=== PATIENT | female | born 1950 | race Caucasian/White ===

== ENCOUNTER 2016-06-01 21:39 | Inpatient (IN) | payer MEDICARE ==
[2016-06-01] MEDS ORDERED: SODIUM CHLORIDE 0.9% 1,000 ML IV STA (22:21)
[2016-06-01] MEDS ORDERED: SODIUM CHLORIDE 0.9% 500 ML IV STA (22:21)
[2016-06-01] MEDS ORDERED: PANTOPRAZOLE 40 MG/10 ML VIAL IVP STA (22:21)
--- NOTE | 2016-06-01 22:27 | ED ---
General Adult HPI - General Source: patient, family, RN notes reviewed, old records reviewed Mode of arrival: ambulatory Limitations: no limitations <Lei Woodall - Last Filed: 06/02/16 01:17> <Yamil Vargas - Last Filed: 06/02/16 03:06> - General Chief complaint: Abdominal Pain Stated complaint: Abd Pain Time Seen by Provider: 06/01/16 22:01 - History of Present Illness Initial comments: Chief complaint and history of present illness 14-year-old female with complaint of discomfort from the epigastric region to the right upper quadrant area. This started approximately 23 hours ago. Slightly decreased appetite, no nausea no vomiting. She has not had difficulty having bowel movements or urinating. (Lei Woodall) - Related Data Home Medications Medication Instructions Recorded Confirmed Allopurinol [Zyloprim] 100 mg PO BID 12/23/13 02/04/16 Famotidine [Pepcid] 10 mg PO DAILY 12/23/13 02/04/16 Furosemide [Lasix] 40 mg PO BID 12/23/13 02/04/16 Metoprolol Tartrate [Lopressor] 100 mg PO QID 12/23/13 02/04/16 amLODIPine [Norvasc] 2.5 mg PO HS 12/23/13 02/04/16 hydrALAZINE HCL [Apresoline] 25 mg PO BID 12/23/13 02/04/16 Anagrelide [Agrylin] 1 tab PO DAILY 03/24/14 02/04/16 Cholecalciferol [Vitamin D3] 2,000 unit PO DAILY@1200 03/24/14 02/04/16 Previous Rx's Medication Instructions Recorded Amoxicillin/Potassium Clav 1 tab PO Q12HR #20 tab 06/29/15 [Augmentin 875-125 Tablet] Cephalexin [Keflex] 500 mg PO Q12HR 7 Days 02/04/16 Allergies Allergy/AdvReac Type Severity Reaction Status Date / Time No Known Allergies Allergy Verified 06/01/16 21:46 Review of Systems ROS Other: All systems not noted in ROS Statement are negative. <Lei Woodall - Last Filed: 06/02/16 01:17> ROS Other: All systems not noted in ROS Statement are negative. <Yamil Vargas - Last Filed: 06/02/16 03:06> ROS Statement: Those systems with pertinent positive or pertinent negative responses have been documented in the HPI. Review of systems. No headache or visual acuity no chest pain or shortness of breath or discomfort in the right side of the abdomen. Mild nausea slightly decreased appetite ongoing for 24 hours. All systems are reviewed. Past medical problems significant for GERD, hypertension, renal insufficiency. History of only one kidney because she had a abdominal aortic aneurysm block off the left kidney. She states aneurysm is inoperable. It was discovered 5 years ago and is not being followed as far as its size. 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 The patient's family history mother at kidney cancer. Patient denies ALLERGIES nonsmoker nondrinker. 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, aortic aneurysm History of Any Multi-Drug Resistant Organisms: None Reported Past Surgical History: Appendectomy, Hernia Repair, Hysterectomy Additional Past Surgical History / Comment(s): SPLENECTOMY, CYST REMOVED FROM BOWEL Past Anesthesia/Blood Transfusion Reactions: No Reported Reaction Past Psychological History: No Psychological Hx Reported Smoking Status: Never smoker Past Alcohol Use History: None Reported Past Drug Use History: None Reported - Past Family History Mother Family Medical History: Congestive Heart Failure (CHF), Renal Disease <Lei Woodall - Last Filed: 06/02/16 01:17> General Exam Limitations: no limitations <Lei Woodall - Last Filed: 06/02/16 01:17> <Yamil Vargas - Last Filed: 06/02/16 03:06> - General Exam Comments Initial Comments: General: The patient is awake and alert, in no distress, and does not appear acutely ill. Planes of discomfort from the epigastric region to the right upper quadrant. Vital signs temp 97.9 pulse 60 respiratory rate 18 pulse ox 95% room air blood pressure here is 173/77. Patient reports at home was 108 systolic. Eye: Pupils are equal, round and reactive to light, extra-ocular movements are intact ; there is normal conjunctiva bilaterally. No signs of icterus. Ears, nose, mouth and throat: There are moist mucous membranes and no oral lesions. Neck: The neck is supple, there is no tenderness . Cardiovascular: There is a regular rate and rhythm. No murmur, rub or gallop is appreciated. Respiratory: Lungs are clear to auscultation, respirations are non-labored, breath sounds are equal. No wheezes, stridor, rales, or rhonchi. Gastrointestinal: Tender from the epigastric region through the right upper quadrant. Negative Ramirez sign. Positive rebound positive referred pain to the right mid abdomen. No flank pain, no shoulder pain. Back: There is no tenderness to palpation in the midline. Musculoskeletal: Normal ROM, no tenderness, Neurological: No evidence of any neurological deficits.. Skin: Skin is warm and dry and no rashes or lesions are noted. (Lei Woodall) Course <Lei Woodall - Last Filed: 06/02/16 01:17> <Yamil Vargas - Last Filed: 06/02/16 03:06> Vital Signs 06/01/16 06/02/16 21:42 02:01 Temperature 97.9 F 96.7 F L Pulse Rate 62 58 L Respiratory 18 18 Rate Blood Pressure 173/77 137/67 O2 Sat by Pulse 95 96 Oximetry - Reevaluation(s) Reevaluation #1: 06/02/16 02:07 I received a call a number of minutes ago or from the radiologist and have also reviewed the computed tomography scan which is concerning for the appearance of cecal volvulus. I went and discussed the results with the patient and did reevaluate her. Her abdomen does have some tenderness, although no rebound. Eyes patient has previously had surgeries marcellus Taylor and Dr. Galdamez returned the call. We discussed the patient. (Yamil Vargas) Medical Decision Making - Lab Data Result diagrams: 06/01/16 22:55 06/01/16 22:55 <Lei Woodall - Last Filed: 06/02/16 01:17> - Lab Data Result diagrams: 06/01/16 22:55 06/01/16 22:55 <Yamil Vargas - Last Filed: 06/02/16 03:06> - Medical Decision Making Medical decision making; patient's white count is 18.4 hemoglobin 14 hematocrit 7 platelets 280. Potassium 4.7 BUN elevated 52 creatinine 1.6 with a GFR of only 32. The patient's plasma lactic acid 1.3, within normal limits. Amylase elevated at 212. The patient had x-rays of the abdomen and reviewed by radiologist findings include Estratest no track; a loop of colon is markedly dilated to 14 cm with air and stool in the left abdomen, suggests ileus, obstruction, versus volvulus. Bones and joints mild degenerative changes in the visualized osseous structures. Impression a loop of colon is markedly dilated to the 14 cm with air and stool in the left abdomen, suggests ileus, obstruction, versus volvulus. As reported by stat rad Lipase still pending, CT exam and reports still pending. Case endorsed to Dr. Vargas, for final disposition. (Lei Woodall) - Lab Data Lab Results 06/01/16 06/01/16 06/01/16 Range/Units 22:55 22:55 22:55 WBC 18.4 H (3.8-10.6) k/uL RBC 3.97 (3.80-5.40) m/uL Hgb 14.6 (11.4-16.0) gm/dL Hct 47.4 H (34.0-46.0) % MCV 119.3 H (80.0-100.0) fL MCH 36.6 H (25.0-35.0) pg MCHC 30.7 L (31.0-37.0) g/dL RDW 23.8 H (11.5-15.5) % Plt Count 280 (150-450) k/uL Neutrophils % (Manual) 71.0 % Lymphocytes % (Manual) 23.0 % Monocytes % (Manual) 4.0 % Eosinophils % (Manual) 2.0 % Neutrophils # (Manual) 13.1 H (1.3-7.7) k/uL Lymphocytes # (Manual) 4.2 (1.0-4.8) k/uL Monocytes # (Manual) 0.7 (0-1.0) k/uL Eosinophils # (Manual) 0.4 (0-0.7) k/uL Nucleated RBCs 0 (0-0) /100 WBC Manual Slide Review Performed Large Platelets Present Polychromasia Present Hypochromasia Marked Poikilocytosis (manual Present Anisocytosis Moderate Anisocytosis (manual) Present Macrocytosis Marked Target Cells Present [place] Bodies Present PT (9.0-12.0) sec INR (<1.1) APTT (22.0-30.0) sec Sodium 142 (137-145) mmol/L Potassium 4.7 (3.5-5.1) mmol/L Chloride 105 (98-107) mmol/L Carbon Dioxide 25 (22-30) mmol/L Anion Gap 12 mmol/L BUN 52 H (7-17) mg/dL Creatinine 1.60 H (0.52-1.04) mg/dL Est GFR (MDRD) Af Amer 39 (>60 ml/min/1.73 sqM) Est GFR (MDRD) Non-Af 32 (>60 ml/min/1.73 sqM) Glucose 93 (74-99) mg/dL Plasma Lactic Acid Hari 1.3 (0.7-2.0) mmol/L Calcium 9.6 (8.4-10.2) mg/dL Total Bilirubin 0.7 (0.2-1.3) mg/dL AST 30 (14-36) U/L ALT 28 (9-52) U/L Alkaline Phosphatase 135 H (38-126) U/L Total Protein 7.4 (6.3-8.2) g/dL Albumin 3.9 (3.5-5.0) g/dL Amylase 212 H (30-110) U/L Lipase 3863 H (23-300) U/L Urine Color Urine Appearance (Clear) Urine pH (5.0-8.0) Ur Specific [place] (1.001-1.035) Urine Protein (Negative) Urine Glucose (UA) (Negative) Urine Ketones (Negative) Urine Blood (Negative) Urine Nitrite (Negative) Urine Bilirubin (Negative) Urine Urobilinogen (<2.0) mg/dL Ur Leukocyte Esterase (Negative) Urine RBC (0-5) /hpf Urine WBC (0-5) /hpf Ur Squamous Epith Cells (0-4) /hpf Urine Bacteria (None) /hpf Hyaline Casts (0-2) /lpf Urine Mucus (None) /hpf 06/01/16 06/01/16 Range/Units 22:55 22:55 WBC (3.8-10.6) k/uL RBC (3.80-5.40) m/uL Hgb (11.4-16.0) gm/dL Hct (34.0-46.0) % MCV (80.0-100.0) fL MCH (25.0-35.0) pg MCHC (31.0-37.0) g/dL RDW (11.5-15.5) % Plt Count (150-450) k/uL Neutrophils % (Manual) % Lymphocytes % (Manual) % Monocytes % (Manual) % Eosinophils % (Manual) % Neutrophils # (Manual) (1.3-7.7) k/uL Lymphocytes # (Manual) (1.0-4.8) k/uL Monocytes # (Manual) (0-1.0) k/uL Eosinophils # (Manual) (0-0.7) k/uL Nucleated RBCs (0-0) /100 WBC Manual Slide Review Large Platelets Polychromasia Hypochromasia Poikilocytosis (manual Anisocytosis Anisocytosis (manual) Macrocytosis Target Cells [place] Bodies PT 11.0 (9.0-12.0) sec INR 1.1 (<1.1) APTT 27.5 (22.0-30.0) sec Sodium (137-145) mmol/L Potassium (3.5-5.1) mmol/L Chloride (98-107) mmol/L Carbon Dioxide (22-30) mmol/L Anion Gap mmol/L BUN (7-17) mg/dL Creatinine (0.52-1.04) mg/dL Est GFR (MDRD) Af Amer (>60 ml/min/1.73 sqM) Est GFR (MDRD) Non-Af (>60 ml/min/1.73 sqM) Glucose (74-99) mg/dL Plasma Lactic Acid Hari (0.7-2.0) mmol/L Calcium (8.4-10.2) mg/dL Total Bilirubin (0.2-1.3) mg/dL AST (14-36) U/L ALT (9-52) U/L Alkaline Phosphatase (38-126) U/L Total Protein (6.3-8.2) g/dL Albumin (3.5-5.0) g/dL Amylase (30-110) U/L Lipase (23-300) U/L Urine Color Light Yellow Urine Appearance Cloudy H (Clear) Urine pH 5.0 (5.0-8.0) Ur Specific [place] 1.009 (1.001-1.035) Urine Protein Trace H (Negative) Urine Glucose (UA) Negative (Negative) Urine Ketones Negative (Negative) Urine Blood Negative (Negative) Urine Nitrite Negative (Negative) Urine Bilirubin Negative (Negative) Urine Urobilinogen <2.0 (<2.0) mg/dL Ur Leukocyte Esterase Large H (Negative) Urine RBC 3 (0-5) /hpf Urine WBC 13 H (0-5) /hpf Ur Squamous Epith Cells 4 (0-4) /hpf Urine Bacteria Rare H (None) /hpf Hyaline Casts 3 H (0-2) /lpf Urine Mucus Rare H (None) /hpf Disposition <Lei Woodall - Last Filed: 06/02/16 01:17> <Yamil Vargas - Last Filed: 06/02/16 03:06> Clinical Impression: Pancreatitis, Abdominal pain, Cecal volvulus Disposition: ADMITTED IP TO THIS HOSP Condition: Serious
--- NOTE | 2016-06-01 23:09 | XR ---
EXAM: XR Abdomen Complete, 2 or More Views. CLINICAL HISTORY: abdominal pain TECHNIQUE: Frontal view of the abdomen/pelvis with upright view of the abdomen. COMPARISON: No relevant prior studies available. FINDINGS: Gastrointestinal tract: A loop of colon is markedly dilated to the 14 cm with air and stool in left abdomen, suggest ileus, obstruction, versus volvulus. Bones/joints: Mild degenerative changes in the visualized osseous structures. IMPRESSION: A loop of colon is markedly dilated to the 14 cm with air and stool in left abdomen, suggest ileus, obstruction, versus volvulus. [employer] 06/01/16 23:26 Verify Receipt Verified receipt with ER Clerk Alexis, given to Dr. Woodall on 06/01 23:26 (-04:00)
[2016-06-01 23:11] LABS: Appearance,Urine Cloudy (Clear); Bacteria,Urine Rare /hpf; Bilirubin,Urine Negative (Negative); Glucose,Urine (UA) Negative (Negative); Ketones,Urine Negative (Negative); Leukocyte Esterase,Urine Large (Negative); Mucus,Urine Rare /hpf; Nitrite,Urine Negative (Negative); Particle Count 8582; Protein,Urine Trace (Negative); RBC,Urine 3 /hpf (0-5); Specific Gravity,Urine 1.009 (1.001-1.035); Squamous Epithelial Cell,Urine 4 /hpf (0-4); UA Billing (MACRO vs. MICRO) MICRO; Urobilinogen,Urine <2.0 mg/dL (<2.0); WBC,Urine 13 /hpf (0-5)
[2016-06-01 23:15] LABS: Anisocytosis Moderate; CH 35.5; Hypochromasia Marked; Macrocytosis Marked
[2016-06-01 23:22] LABS: INR 1.1 (<1.1); Partial Thromboplastin Time 27.5 sec (22.0-30.0)
[2016-06-01 23:27] LABS: CHCM 29.9; Calcium 9.6 mg/dL (8.4-10.2); HCT 47.4 % (34.0-46.0); HDW 3.33; HGB 14.6 gm/dL (11.4-16.0); MCH 36.6 pg (25.0-35.0); MCHC 30.7 g/dL (31.0-37.0); MCV 119.3 fL (80.0-100.0); Mean Platelet Volume 10.1; Potassium 4.7 mmol/L (3.5-5.1); RBC 3.97 m/uL (3.80-5.40); RDW 23.8 % (11.5-15.5); Total Bilirubin 0.7 mg/dL (0.2-1.3); Total Protein 7.4 g/dL (6.3-8.2); WBC 18.4 k/uL (3.8-10.6); WBC (Perox) 19.92
[2016-06-01 23:50] LABS: Add Differential Manual Differential
[2016-06-01 23:52] LABS: Manual Review Performed; Nucleated Red Blood Cells 0 /100 WBC (0-0); Total Cells Counted 100
[2016-06-01] MEDS ORDERED: IOHEXOL 350 MG/ML 25 ML BOTTLE (ORAL USE) PO PRN (23:53)
[2016-06-01 23:54] LABS: Howell-Jolly Bodies Present; Polychromasia Present; Target Cells Present
[2016-06-01 23:56] LABS: Large Platelets Present
[2016-06-02] MEDS ORDERED: ONDANSETRON 4 MG/2 ML VIAL IVP STA (01:48)
[2016-06-02] MEDS ORDERED: MORPHINE SULFATE 4 MG/ML SYRINGE IV STA (01:48)
--- NOTE | 2016-06-02 01:50 | CT ---
History: Reason: Oral contrast only Exam: CT ABDOMEN + PELVIS Without Contrast non-infused axial images from the lung bases through the ischial tuberosities following administration of oral contrast with multiplanar reformatted images Technique more: CTDI is 10.90 mGy and DLP is 519 mGy-cm Technique more: This CT exam was performed using one or more of the following dose reduction techniques: automated exposure control, adjustment of the mA and/or kV according to patient size, and/or use of iterative reconstruction technique. Comparison: None available FINDINGS: Mild basilar atelectasis. Old left lateral rib fracture with callus formation axial 7. The liver appears within limits on non-infused imaging with prominent Bradley's lobe, anatomic variant. The adrenal glands, pancreas and abdominal aorta appear within limits on non-infused imaging. Status post splenectomy and apparent Kelli fundoplication, correlate with surgical history. Bilateral nonspecific perinephric stranding, edema without hydronephrosis. No renal stones. There may be a couple of small renal cysts. There are bilateral small high density ovoid areas at the kidney which may represent complex cysts with solid lesion not excluded. 2 cm partially exophytic appearing lesion right kidney axial 45 is indeterminate and may represent complex cyst or solid lesion requires further workup. Tiny layering stones, gravel within nondistended, noninflamed appearing gallbladder. The cecum is distended containing an air-fluid level and displaced into the left upper and midabdomen with a tapered and somewhat swirling appearance of the ascending colon and hepatic flexure which may be related to volvulus. Oral contrast has not yet reached the cecum or ascending colon. No free air or free fluid. Small fat-containing right inguinal hernia without stranding. The bladder appears within limits. Status post hysterectomy. Diverticulosis without evidence of diverticulitis. Diffuse abnormal heterogeneous appearance of the visualized osseous structures may be related to metastatic disease or other metabolic disorder, clinically correlate. IMPRESSION: The cecum is distended containing an air-fluid level and displaced into the left upper and midabdomen with a tapered and somewhat swirling appearance of the ascending colon and hepatic flexure which may be related to volvulus. Oral contrast has not yet reached the cecum or ascending colon. May correlate further with water-soluble contrast enema which may be both diagnostic and therapeutic. No free air or free fluid. Status post splenectomy and apparent Kelli fundoplication, correlate with surgical history. Bilateral nonspecific perinephric stranding, edema without hydronephrosis. No renal stones. There may be a couple of small renal cysts. There are bilateral small high density ovoid areas at the kidney which may represent complex cysts with solid lesion not excluded. 2 cm partially exophytic appearing lesion right kidney axial 45 is indeterminate and may represent complex cyst or solid lesion requires further workup. May follow-up with nonemergent multiphasic renal CT or MRI. Tiny layering stones, gravel within nondistended, noninflamed appearing gallbladder. Status post hysterectomy. Diverticulosis without evidence of diverticulitis. Diffuse abnormal heterogeneous appearance of the visualized osseous structures may be related to metastatic disease or other metabolic disorder, clinically correlate. [employer] 06/02/16 01:51 Call Doctor Regarding Volvulus, called Dr. Sotomayor on 06/02 01:50 (-04:00)
[2016-06-02] MEDS ORDERED: PIPERACILLIN-TAZOBACTAM 3.375 GM in DEXTROSE/WATER 1 50ML.BAG IVPB STA (02:09)
[2016-06-02] MEDS ORDERED: NALOXONE 0.4 MG/ML 1 ML VIAL IV PRN ×2 (03:03→16:46)
--- NOTE | 2016-06-02 03:07 | P.GSHP ---
History of Present Illness H&P Date: 06/02/16 Chief Complaint: Abdominal pain The patient began having abdominal pain yesterday. It got progressively worse. She came into the emergency department and was worked up with a computed tomography scan suggestive of a cecal volvulus. She's not had any problems with pain like this in the past. SHe does give a history of a appendectomy and splenectomy in the distant past for acute appendicitis and significant splenomegaly. She's not had a colonoscopy in 15-20 years. No blood in the stool or dark tarry stools. She had nausea and vomited today after the oral contrast. Normal bowel movement yesterday. No family history GI malignancy or inflammatory bowel disease. 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, aortic aneurysm History of Any Multi-Drug Resistant Organisms: None Reported Past Surgical History: Appendectomy, Hernia Repair, Hysterectomy Additional Past Surgical History / Comment(s): SPLENECTOMY, CYST REMOVED FROM BOWEL Past Anesthesia/Blood Transfusion Reactions: No Reported Reaction Past Psychological History: No Psychological Hx Reported Smoking Status: Never smoker Past Alcohol Use History: None Reported Past Drug Use History: None Reported - Past Family History Mother Family Medical History: Congestive Heart Failure (CHF), Renal Disease Medications and Allergies Home Medications Medication Instructions Recorded Confirmed Type Allopurinol [Zyloprim] 100 mg PO BID 12/23/13 02/04/16 History Famotidine [Pepcid] 10 mg PO DAILY 12/23/13 02/04/16 History Furosemide [Lasix] 40 mg PO BID 12/23/13 02/04/16 History Metoprolol Tartrate [Lopressor] 100 mg PO QID 12/23/13 02/04/16 History amLODIPine [Norvasc] 2.5 mg PO HS 12/23/13 02/04/16 History hydrALAZINE HCL [Apresoline] 25 mg PO BID 12/23/13 02/04/16 History Anagrelide [Agrylin] 1 tab PO DAILY 03/24/14 02/04/16 History Cholecalciferol [Vitamin D3] 2,000 unit PO DAILY@1200 03/24/14 02/04/16 History Allergies Allergy/AdvReac Type Severity Reaction Status Date / Time No Known Allergies Allergy Verified 06/01/16 21:46 Surgical - Exam Osteopathic Statement: *. No significant issues noted on an osteopathic structural exam other than those noted in the History and Physical/Consult. Vital Signs Temp Pulse Resp BP Pulse Ox 97.9 F 62 18 173/77 95 06/01/16 21:42 06/01/16 21:42 06/01/16 21:42 06/01/16 21:42 06/01/16 21:42 - General Uncomfortable laying in bed well developed, well nourished - ENT no hearing loss - Neck trachea midline, no lymphadectomy - Cardiovascular Rhythm: regular - Abdomen Tenderness to palpation with a Rovsing sign Abdomen: soft, tender, surgical scars, distended - Psychiatric oriented to time, oriented to person, oriented to place, speech is normal, memory intact Results - Labs 06/01/16 22:55 06/01/16 22:55 Abnormal Lab Results - Last 24 Hours (Table) 06/01/16 06/01/16 06/01/16 Range/Units 22:55 22:55 22:55 WBC 18.4 H (3.8-10.6) k/uL Hct 47.4 H (34.0-46.0) % MCV 119.3 H (80.0-100.0) fL MCH 36.6 H (25.0-35.0) pg MCHC 30.7 L (31.0-37.0) g/dL RDW 23.8 H (11.5-15.5) % Neutrophils # (Manual) 13.1 H (1.3-7.7) k/uL BUN 52 H (7-17) mg/dL Creatinine 1.60 H (0.52-1.04) mg/dL Alkaline Phosphatase 135 H (38-126) U/L Amylase 212 H (30-110) U/L Lipase 3863 H (23-300) U/L Urine Appearance Cloudy H (Clear) Urine Protein Trace H (Negative) Ur Leukocyte Esterase Large H (Negative) Urine WBC 13 H (0-5) /hpf Urine Bacteria Rare H (None) /hpf Hyaline Casts 3 H (0-2) /lpf Urine Mucus Rare H (None) /hpf Diabetes panel 06/01/16 Range/Units 22:55 Sodium 142 (137-145) mmol/L Potassium 4.7 (3.5-5.1) mmol/L Chloride 105 (98-107) mmol/L Carbon Dioxide 25 (22-30) mmol/L BUN 52 H (7-17) mg/dL Creatinine 1.60 H (0.52-1.04) mg/dL Glucose 93 (74-99) mg/dL Calcium 9.6 (8.4-10.2) mg/dL AST 30 (14-36) U/L ALT 28 (9-52) U/L Alkaline Phosphatase 135 H (38-126) U/L Total Protein 7.4 (6.3-8.2) g/dL Albumin 3.9 (3.5-5.0) g/dL Calcium panel 06/01/16 Range/Units 22:55 Calcium 9.6 (8.4-10.2) mg/dL Albumin 3.9 (3.5-5.0) g/dL Pituitary panel 06/01/16 Range/Units 22:55 Sodium 142 (137-145) mmol/L Potassium 4.7 (3.5-5.1) mmol/L Chloride 105 (98-107) mmol/L Carbon Dioxide 25 (22-30) mmol/L BUN 52 H (7-17) mg/dL Creatinine 1.60 H (0.52-1.04) mg/dL Glucose 93 (74-99) mg/dL Calcium 9.6 (8.4-10.2) mg/dL Adrenal panel 06/01/16 Range/Units 22:55 Sodium 142 (137-145) mmol/L Potassium 4.7 (3.5-5.1) mmol/L Chloride 105 (98-107) mmol/L Carbon Dioxide 25 (22-30) mmol/L BUN 52 H (7-17) mg/dL Creatinine 1.60 H (0.52-1.04) mg/dL Glucose 93 (74-99) mg/dL Calcium 9.6 (8.4-10.2) mg/dL Total Bilirubin 0.7 (0.2-1.3) mg/dL AST 30 (14-36) U/L ALT 28 (9-52) U/L Alkaline Phosphatase 135 H (38-126) U/L Total Protein 7.4 (6.3-8.2) g/dL Albumin 3.9 (3.5-5.0) g/dL - Imaging CT scan - abdomen: report reviewed, image reviewed Assessment and Plan (1) Cecal volvulus Status: Acute (2) Polycythemia vera Status: Acute (3) Aneurysm Status: Acute (4) Pancreatitis Status: Acute Plan: The patient's workup for somewhat complicated due to the pancreatitis. The computed tomography scan was noncontrasted which would not reveal significant inflammatory changes there. Therefore we will met her, bowel rest, IV antibiotics, barium enema to hopefully treat the acute volvulus and allow time for the pancreatitis to resolve. We'll order the barium enema first thing in the morning. Repeat labs at noon and have further recommendations to follow.
[2016-06-02] MEDS: SODIUM CHLORIDE 0.9% 1,000 ML IV SCH ×2 (05:06→20:57)
[2016-06-02 05:30] VITALS: BMI 31.1
[2016-06-02] MEDS: MORPHINE SULFATE 4 MG/ML SYRINGE IV PRN ×2 (07:25→13:32)
[2016-06-02] MEDS: PANTOPRAZOLE 40 MG/10 ML VIAL IV SCH (09:29)
--- NOTE | 2016-06-02 09:32 | FL ---
EXAMINATION TYPE: FL barium enema w air contrast DATE OF EXAM: 06/02/2016 9:20 AM COMPARISON: NONE HISTORY: Abnormal CT, abdominal pain TECHNIQUE: A single water soluble contrast enema study is performed. FINDINGS: Emt B film: The colon in the left upper quadrant appears prominent and dilated. This may be the cecum . There are dilated small bowel air-filled small bowel loops within the right midabdomen. Contrast ex tends to the distal ileum. The procedure was explained to the patient. Water-soluble contrast was placed rectally in retrograde fashion. Sigmoid colon is redundant. Fecal debris is within the descending colon. There is redundancy at the s plenic flexure. There is slight hesitancy of contrast refluxing into the transverse colon. Transverse colon extends t o the mid abdomen and has an abrupt cut off. With additional contrast a curvilinear course appears to be followed by the contrast which then fills the dilated cecum which is left of midline. Volvulus of the cecum appears to be present with minimal contrast passing through. IMPRESSION: 1. Findings can be compatible with volvulus of the cecum. Report was called to Dr. Galdamez by Dr. Bill espino by telephone at 0930 hours 06/02/2016
--- NOTE | 2016-06-02 10:41 | P.PN ---
Progress Note - Text BE shows cecal volvulus which was unable to be reduced. Will therefore need to proceed with R hemicolectomy.
[2016-06-02] MEDS: ONDANSETRON 4 MG/2 ML VIAL IVP PRN (12:19)
[2016-06-02 13:16] LABS: Calcium 9.5 mg/dL (8.4-10.2); Potassium 4.3 mmol/L (3.5-5.1); Total Bilirubin 1.2 mg/dL (0.2-1.3); Total Protein 7.4 g/dL (6.3-8.2)
[2016-06-02 13:38] LABS: Anisocytosis Moderate; CH 34.8; CHCM 29.3; HCT 49.3 % (34.0-46.0); HDW 3.29; Hypochromasia Marked; MCH 36.2 pg (25.0-35.0); MCHC 30.5 g/dL (31.0-37.0); Macrocytosis Marked; Mean Platelet Volume 9.9; RBC 4.14 m/uL (3.80-5.40); RDW 23.8 % (11.5-15.5); WBC 17.6 k/uL (3.8-10.6)
[2016-06-02] MEDS ORDERED: IV FLUID CONTINUATION 1,000 ML IV ONE (15:11)
[2016-06-02 15:23] LABS: Glucose,Whole Blood 117 mg/dL (75-99)
[2016-06-02] MEDS ORDERED: ONDANSETRON 4 MG/2 ML VIAL IVP ONE (16:07)
[2016-06-02] MEDS ORDERED: MIDAZOLAM 2 MG/2 ML VIAL IV ONE (16:22)
[2016-06-02] MEDS ORDERED: HEPARIN SODIUM,PORCINE 5,000 UNIT/ML 1 ML VIAL SQ ONE (16:40)
[2016-06-02] MEDS ORDERED: HYDROmorphone 1 MG/ML 1 ML SYRINGE IVP PRN (16:55)
[2016-06-02] MEDS ORDERED: LACTATED RINGERS 1,000 ML IV SCH (17:00)
[2016-06-02] MEDS ORDERED: fentaNYL (PF) 50 MCG/ML 2 ML AMP ONE (17:03)
[2016-06-02] MEDS ORDERED: NEOSTIGMINE 1 MG/ML 10 ML VIAL ONE (17:03)
[2016-06-02] MEDS ORDERED: SUCCINYLCHOLINE CHLORIDE 100 MG/5 ML SYR IV ONE (17:03)
[2016-06-02] MEDS ORDERED: MIDAZOLAM 2 MG/2 ML VIAL ONE (17:03)
[2016-06-02] MEDS ORDERED: VECURONIUM 10 MG VIAL IV ONE (17:03)
[2016-06-02] MEDS ORDERED: GLYCOPYRROLATE 0.2 MG/ML 2 ML VIAL ONE (17:03)
[2016-06-02] MEDS ORDERED: PROPOFOL 10 MG/ML 20 ML VIAL IV ONE (17:03)
[2016-06-02] MEDS ORDERED: PHENYLEPHRINE-0.9% NACL SYG 1 MG/10 ML SYRINGE ONE (17:03)
[2016-06-02] MEDS: PIPERACILLIN-TAZOBACTAM 3.375 GM in DEXTROSE/WATER 1 50ML.BAG IVPB SCH ×2 (17:47→23:44)
[2016-06-02] MEDS ORDERED: LACTATED RINGERS 1,000 ML IV ONE (18:19)
--- NOTE | 2016-06-02 18:40 | P.OP ---
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 Workup was suggestive of a cecal volvulus on computed tomography scan confirmed with barium enema Description of Procedure: Patient's taken the operative suite where she is prepped and draped in the usual sterile manner under a general endotracheal anesthetic. The abdomen was entered through a midline incision. Small bleeding points are controlled with electrocautery. She was noted to have a small fascial defect with some incarcerated omentum which was reduced. She had a markedly dilated cecum with a twist present. The cecum was gently brought up out of the abdomen. The entire right colon and hepatic flexure were extremely redundant. The peritoneum was scored with cautery along the lateral portion. Site was then chosen on the terminal ileum for resection. Opening was made in the mesentery. A EALRENE stapler was placed and fired. The mesentery was then either taken down with LigaSure or the larger vessels were clamped cut and tied with 0 Vicryl sutures. Site was chosen on the transverse colon for resection and a EARLENE stapler was placed and fired. The small bowel was then milked from distally to proximally and the contents were milked into the stomach and aspirated. A side- to-side anastomosis was then carried out. 3-0 Vicryl Lembert sutures were placed to line up the bowel. A small enterotomy was made in each limb of the bowel. A stapler was placed and fired. The staple line appeared hemostatic. The defect was closed with the TA stapler. The staple line was reinforced with 3-0 Vicryl Lembert sutures. The mesenteric defect was closed with 3-0 Vicryl. Cut was and instruments were changed. The bowel was allowed to lay in gentle loops and covered with the omentum. The fascia and peritoneum were closed with 1 PDS. The skin was approximated with chantell. A dressing was applied. She tolerated the procedure without difficulty was taken recovery room in satisfactory condition. According to or personnel all counts were correct.
[2016-06-02] MEDS ORDERED: ACETAMINOPHEN TAB 325 MG TAB PO PRN (18:42)
[2016-06-02] MEDS ORDERED: D5-0.45% NACL WITH KCL 20MEQ/L 1,000 ML IV SCH (18:45)
[2016-06-02] MEDS ORDERED: METOCLOPRAMIDE 5 MG/ML 2 ML VIAL IVP SCH (18:45)
[2016-06-02] MEDS: D5-0.45% NACL WITH KCL 20MEQ/L 1,000 ML IV SCH (20:59)
[2016-06-03 01:46] VITALS: RESP 16
[2016-06-03] MEDS: D5-0.45% NACL WITH KCL 20MEQ/L 1,000 ML IV SCH ×3 (06:05→21:03)
[2016-06-03] MEDS: ONDANSETRON 4 MG/2 ML VIAL IVP PRN (08:09)
[2016-06-03 08:19] LABS: Calcium 8.8 mg/dL (8.4-10.2); Potassium 4.6 mmol/L (3.5-5.1); Total Bilirubin 1.3 mg/dL (0.2-1.3); Total Protein 6.2 g/dL (6.3-8.2)
[2016-06-03 08:32] LABS: Anisocytosis Moderate; Basophils # (A) 0.1 k/uL (0-0.2); Basophils % (A) 1 %; CH 34.8; CHCM 28.9; Eosinophils # (A) 0.1 k/uL (0-0.7); Eosinophils % (A) 1 %; HCT 43.4 % (34.0-46.0); HDW 3.24; HGB 12.8 gm/dL (11.4-16.0); Hypochromasia Marked; Luc # (Auto) 0.28; Luc % (Auto) 2; Lymphocytes # (A) 1.9 k/uL (1.0-4.8); Lymphocytes % (A) 10 %; MCH 35.6 pg (25.0-35.0); MCHC 29.5 g/dL (31.0-37.0); MCV 120.9 fL (80.0-100.0); Macrocytosis Marked; Mean Platelet Volume 10.3; Monocytes # (A) 0.8 k/uL (0-1.0); Monocytes % (A) 4 %; Neutrophils # (A) 15.5 k/uL (1.3-7.7); Neutrophils % (A) 83 %; RBC 3.59 m/uL (3.80-5.40); RDW 23.3 % (11.5-15.5); WBC 18.6 k/uL (3.8-10.6); WBC (Perox) 19.58
[2016-06-03] MEDS: PIPERACILLIN-TAZOBACTAM 3.375 GM in DEXTROSE/WATER 1 50ML.BAG IVPB SCH ×2 (09:28→16:08)
[2016-06-03] MEDS: METOCLOPRAMIDE 5 MG/ML 2 ML VIAL IVP SCH ×3 (09:28→18:05)
[2016-06-03 09:49] LABS: Large Platelets Present
[2016-06-03 09:50] LABS: Howell-Jolly Bodies Present; Manual Review Performed; Target Cells Present
--- NOTE | 2016-06-03 10:54 | P.PN ---
Progress Note - Text Patient is postoperative day#, status post exploratory laparotomy and right hemicolectomy, epidural catheter placed for postoperative analgesia. Patient currently on epidural infusion of bupivacaine 0.0625%, fentanyl 5 g/ml, at 8 ml/hours. Pain is well controlled with visual analog scale rating 0/10. However patient has some pain on mobilizing out of bed. Patient had no side effect from the medication, epidural site okay, patient had no motor deficit, Assessment and plan= acute postoperative pain, pain is under control,and will continue the same management.
[2016-06-03] MEDS: ALLOPURINOL 100 MG TAB PO SCH (14:46)
[2016-06-03] MEDS: FUROSEMIDE 40 MG TAB PO SCH ×2 (14:46→21:04)
[2016-06-03] MEDS: CHOLECALCIFEROL 1,000 UNIT TAB PO SCH (14:47)
--- NOTE | 2016-06-03 15:23 | P.PN ---
Subjective Principal diagnosis: Cecal volvulus The patient's postoperative day 1 from a right hemicolectomy for cecal volvulus. She is doing fairly well. The pain is well-controlled. She was having some slight nausea this morning. No vomiting. Denies Chest pain or shortness of breath. Objective - Vital Signs Vital signs: Vital Signs Temp 98.3 F 06/03/16 15:19 Pulse 65 06/03/16 15:19 Resp 16 06/03/16 15:19 BP 124/85 06/03/16 15:19 Pulse Ox 98 06/03/16 15:19 Intake & Output 06/02/16 06/03/16 06/03/16 18:59 06:59 18:59 Intake Total 2800 Output Total 250 Balance 2550 Intake: IV 2800 Sodium Chloride 0.9% 1, 1000 000 ml @ 125 mls/hr IV . Q8H [facility] Rx#:[id number] Output: Urine 150 Estimated Blood Loss 100 - Constitutional General appearance: Present: cooperative, no acute distress - Respiratory Respiratory: bilateral: CTA - Cardiovascular Rhythm: regular - Gastrointestinal General gastrointestinal: Present: normal bowel sounds, soft Localized gastrointestinal: surgical scar: midline (Dressing is intact clean and dry) - Labs CBC & Chem 7: 06/03/16 07:33 06/03/16 07:33 Labs: Abnormal Lab Results - Last 24 Hours (Table) 06/02/16 06/03/16 06/03/16 Range/Units 15:22 07:33 07:33 WBC 18.6 H (3.8-10.6) k/uL RBC 3.59 L (3.80-5.40) m/uL MCV 120.9 H (80.0-100.0) fL MCH 35.6 H (25.0-35.0) pg MCHC 29.5 L (31.0-37.0) g/dL RDW 23.3 H (11.5-15.5) % Neutrophils # 15.5 H (1.3-7.7) k/uL Chloride 108 H (98-107) mmol/L Carbon Dioxide 21 L (22-30) mmol/L BUN 29 H (7-17) mg/dL Creatinine 1.36 H (0.52-1.04) mg/dL Glucose 144 H (74-99) mg/dL POC Glucose (mg/dL) 117 H (75-99) mg/dL Total Protein 6.2 L (6.3-8.2) g/dL Albumin 3.1 L (3.5-5.0) g/dL Assessment and Plan (1) Cecal volvulus Status: Acute (2) Polycythemia vera Status: Acute (3) Aneurysm Status: Acute (4) Pancreatitis Status: Acute Plan: I will add scheduled Reglan to increase gastric emptying. Encourage activity. Getting prophylactic antibiotics. Continue epidural since its working well for her pain. Encourage incentive spirometry. Gradually introduce a diet as her nausea improves. She is progressing slowly.
[2016-06-03] MEDS: METOPROLOL TARTRATE 50 MG TAB PO SCH ×3 (16:07→21:05)
[2016-06-03] MEDS: PANTOPRAZOLE 40 MG/10 ML VIAL IV SCH (16:10)
[2016-06-03] MEDS: amLODIPine 5 MG TAB PO SCH (21:04)
[2016-06-03] MEDS: HYDROXYUREA 500 MG CAP PO SCH (21:05)
[2016-06-03] MEDS: BUPIVACAINE (PF) 0.5% 31.3 ML, fentaNYL (PF) 1,250 MCG in SODIUM CHLORIDE 0.9% 194 ML EPIDURAL PRN (21:26)
[2016-06-04] MEDS: PIPERACILLIN-TAZOBACTAM 3.375 GM in DEXTROSE/WATER 1 50ML.BAG IVPB SCH ×4 (01:03→23:52)
[2016-06-04] MEDS: METOCLOPRAMIDE 5 MG/ML 2 ML VIAL IVP SCH ×3 (01:03→12:30)
[2016-06-04] MEDS: D5-0.45% NACL WITH KCL 20MEQ/L 1,000 ML IV SCH ×3 (04:52→21:41)
[2016-06-04] MEDS: ALLOPURINOL 100 MG TAB PO SCH (09:27)
[2016-06-04] MEDS: FUROSEMIDE 40 MG TAB PO SCH ×2 (09:27→22:45)
[2016-06-04] MEDS: HYDROXYUREA 500 MG CAP PO SCH ×2 (09:28→22:46)
[2016-06-04] MEDS: METOPROLOL TARTRATE 50 MG TAB PO SCH ×4 (09:28→22:46)
[2016-06-04] MEDS: PANTOPRAZOLE 40 MG/10 ML VIAL IV SCH (09:28)
--- NOTE | 2016-06-04 10:09 | P.PN ---
Subjective pod 2 status post colectomy; doing ok; no neuro deficits and minimal discomfort ; epidural rate at 8 cc per hour Objective - Vital Signs Vital signs: Vital Signs Temp 97.5 F L 06/04/16 07:00 Pulse 70 06/04/16 07:00 Resp 16 06/04/16 07:00 BP 145/75 06/04/16 07:00 Pulse Ox 95 06/04/16 07:00 Intake & Output 06/03/16 06/04/16 06/04/16 18:59 06:59 18:59 Intake Total 1050 100 Output Total 700 Balance 1050 -600 Intake: IV 1050 D5-0.45% NaCl with KCl 1000 20Meq/l 1,000 ml @ 125 mls/hr IV .Q8H [facility] Rx#: [id number] Piperacillin-Tazobactam 3 50 .375 gm In Dextrose/Water 1 50ml.bag @ 12.5 mls/hr IVPB Q8HR [facility] Rx#: [id number] Oral 100 Output: Urine 700 Uretheral (Aranda) 700 Other: Voiding Method Indwelling Catheter - Labs CBC & Chem 7: 06/03/16 07:33 06/03/16 07:33
[2016-06-04] MEDS: ONDANSETRON 4 MG/2 ML VIAL IVP PRN (10:27)
[2016-06-04] MEDS: CHOLECALCIFEROL 1,000 UNIT TAB PO SCH (12:36)
--- NOTE | 2016-06-04 19:12 | P.CONS ---
History of Present Illness - Reason for Consult Consult date: 06/04/16 polycythemia vera Requesting physician: Yadiel Moffett - Chief Complaint abd pain - History of Present Illness Ms. Mccall is a very pleasant female pt of Dr. Barnes who has a history of myeloproliferative disorder, polycythemia vera with a reactive leukocytosis and thrombocytosis which she has had for many years, she has had splenectomy. She was treated with Agrylin which was keeping her platelet counts down for many years, she had intermittent phlebotomies. She did well until Jan when her Hgb increased to 15, agrylin was stopped and she was started in hydrea BID M,W,F and daily rest of the week, increased to BID daily in Feb 2016. She has tolerated hydrea well and had her last follow up with Dr. Garcial2/, due to follow up again in the next few weeks. Pt has extensive PMH including heart disease, gout, diabetes and end stage renal disease-dialysis was recommended but she declined. Pt was admitted with abd pain, found to have volvulus of cecum and she is s/p right hemicolectomy. She is doing well today, she has ingested some fluids, pain is controlled, denies flatus at this time. 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" History of Any Multi-Drug Resistant Organisms: None Reported Past Surgical History: Appendectomy, Hernia Repair, Hysterectomy Additional Past Surgical History / Comment(s): SPLENECTOMY, CYST REMOVED FROM BOWEL Past Anesthesia/Blood Transfusion Reactions: No Reported Reaction Additional Past Anesthesia/Blood Transfusion Reaction / Comm: no history of blood transfusion Past Psychological History: No Psychological Hx Reported Smoking Status: Never smoker Past Alcohol Use History: None Reported Past Drug Use History: None Reported - Past Family History Father Family Medical History: Myocardial Infarction ([place]) Additional Family Medical History / Comment(s): aneurysm Mother Family Medical History: Cancer, Congestive Heart Failure (CHF), Renal Disease Additional Family Medical History / Comment(s): kidney cancer Medications and Allergies Home Medications Medication Instructions Recorded Confirmed Type Allopurinol [Zyloprim] 100 mg PO DAILY 12/23/13 06/02/16 History Furosemide [Lasix] 40 mg PO BID 12/23/13 06/02/16 History Metoprolol Tartrate [Lopressor] 100 mg PO QID 12/23/13 06/02/16 History Cholecalciferol [Vitamin D3] 2,000 unit PO DAILY 03/24/14 06/02/16 History Hydroxyurea [Hydrea] 500 mg PO DIRECTED 06/02/16 06/02/16 History amLODIPine [Norvasc] 5 mg PO HS 06/02/16 06/02/16 History Allergies Allergy/AdvReac Type Severity Reaction Status Date / Time No Known Allergies Allergy Verified 06/02/16 08:01 Physical Exam Vitals: Vital Signs Temp Pulse Resp BP Pulse Ox 06/04/16 15:00 97.8 F 65 16 143/73 94 L 06/04/16 12:00 76 136/78 06/04/16 07:00 97.5 F L 70 16 145/75 95 06/04/16 02:00 97.8 F 67 16 137/73 96 06/03/16 20:00 98.1 F 73 16 147/75 94 L Intake and Output 06/04/16 06/04/16 06/04/16 06:59 14:59 22:59 Intake Total 50 Output Total 700 1800 Balance -650 -1800 Intake: Oral 50 Output: Urine 700 1800 Uretheral (Aranda) 700 Other: Voiding Method Indwelling Catheter - Constitutional General appearance: average body habitus, cooperative - EENT Eyes: anicteric sclerae, PERRLA, normal appearance ENT: normal oropharynx - Neck Neck: lymphadenopathy - Respiratory Respiratory: bilateral: CTA - Cardiovascular Rhythm: regular Heart sounds: normal: S1, S2 leg Peripheral Edema: bilateral: None - Gastrointestinal abd binder in place General gastrointestinal: absent bowel sounds, soft - Integumentary Integumentary: normal - Neurologic Neurologic: CNII-XII intact - Musculoskeletal Musculoskeletal: strength equal bilaterally - Psychiatric Psychiatric: A&O x's 3, appropriate affect, intact judgment & insight Results CBC & Chem 7: 06/03/16 07:33 06/03/16 07:33 Comments: operative notes reviewed Assessment and Plan (1) Polycythemia vera Narrative/Plan: Pt MPD is currently being treated with hydrea which pt tolerates well. She states missing a few doses this last week due to the abd pain. Labs were reviewed with Dr. Barnes. Blessing ortiz at this time. Her Hgb has actually decreased slightly with the moravian of renal dysfunction but again, plan is to continue hydrea and monitor Hgb. Pt will f/u Dr. Barnes as scheduled. Status: Chronic
[2016-06-04] MEDS: BUPIVACAINE (PF) 0.5% 31.3 ML, fentaNYL (PF) 1,250 MCG in SODIUM CHLORIDE 0.9% 194 ML EPIDURAL PRN (21:42)
[2016-06-04] MEDS: amLODIPine 5 MG TAB PO SCH (22:45)
[2016-06-05] MEDS: D5-0.45% NACL WITH KCL 20MEQ/L 1,000 ML IV SCH ×2 (05:08→07:01)
[2016-06-05] MEDS: PIPERACILLIN-TAZOBACTAM 3.375 GM in DEXTROSE/WATER 1 50ML.BAG IVPB SCH ×2 (07:32→16:28)
[2016-06-05 07:46] LABS: Glucose,Whole Blood 136 mg/dL (75-99)
--- NOTE | 2016-06-05 08:29 | P.PN ---
Progress Note - Text Date: 06/05/2016 Time: 707 The patient is status post, right hemicolectomy postoperative day number 3 The patient has no complaints of nausea vomiting or headache. The patient does not complain of any lower extremity numbness or weakness. The epidural is running at 8 mL per hour. The epidural will be discontinued this morning. Pain medicines will be provided to the patient by the service.
--- NOTE | 2016-06-05 08:52 | PN ---
DATE OF SERVICE: 06/05/2016 Daisha is seen on rounds. She is status post right hemicolectomy for cecal volvulus. She has been doing fairly well. She is tolerating her current diet. She had a large bowel movement this morning. Pain is controlled with the epidural. PHYSICAL EXAM: Vital signs are stable. She has been afebrile. Her abdomen is soft. Positive bowel sounds. The dressing is intact and dry. LAB: Her hemoglobin and white count are about at baseline. Her amylase and lipase had normalized. ASSESSMENT: 1. Status post right hemicolectomy for cecal volvulus. 2. Pancreatitis of unknown etiology. PLAN: Will block her IV, remove her epidural and change her to oral pain medications. Increase activity as tolerated. Likely discharge in the next day or so.
[2016-06-05] MEDS: METOPROLOL TARTRATE 50 MG TAB PO SCH ×3 (09:54→18:38)
[2016-06-05] MEDS: FUROSEMIDE 40 MG TAB PO SCH ×2 (09:55→20:45)
[2016-06-05] MEDS: ALLOPURINOL 100 MG TAB PO SCH (09:55)
[2016-06-05] MEDS: PANTOPRAZOLE 40 MG/10 ML VIAL IV SCH (09:55)
[2016-06-05] MEDS: HYDROXYUREA 500 MG CAP PO SCH ×2 (10:54→17:40)
[2016-06-05] MEDS: CHOLECALCIFEROL 1,000 UNIT TAB PO SCH (11:52)
[2016-06-05] MEDS: HYDROcodone/APAP 5-325MG 1 EACH TAB PO PRN (14:20)
[2016-06-05] MEDS: amLODIPine 5 MG TAB PO SCH (20:45)
[2016-06-05] MEDS ORDERED: HYDROXYUREA 500 MG CAP ONE (22:00)
[2016-06-06] MEDS: METOPROLOL TARTRATE 50 MG TAB PO SCH ×3 (05:02→12:02)
[2016-06-06] MEDS: HYDROXYUREA 500 MG CAP PO SCH ×2 (05:02→07:39)
[2016-06-06] MEDS: PIPERACILLIN-TAZOBACTAM 3.375 GM in DEXTROSE/WATER 1 50ML.BAG IVPB SCH ×2 (05:03→07:46)
[2016-06-06] MEDS: PANTOPRAZOLE 40 MG/10 ML VIAL IV SCH (07:38)
[2016-06-06] MEDS: FUROSEMIDE 40 MG TAB PO SCH (07:39)
[2016-06-06] MEDS: ALLOPURINOL 100 MG TAB PO SCH (07:39)
[2016-06-06 08:00] VITALS: BP 148/84; PULSE 76; TEMP 97.4
[2016-06-06] MEDS: HYDROcodone/APAP 5-325MG 1 EACH TAB PO PRN (08:44)
[2016-06-06] MEDS: CHOLECALCIFEROL 1,000 UNIT TAB PO SCH (12:02)
--- NOTE | 2016-06-06 13:05 | P.DS ---
Providers Date of admission: 06/02/16 03:06 Expected date of discharge: 06/06/16 Attending physician: Verónica Galdamez Consults: 06/02/16 10:42 Consult Physician Routine Consulting Provider: Yadiel Moffett Consult Reason/Comments: medical management Do you want consulting provider notified?: Already Contacted 06/03/16 10:25 Consult Physician Routine Consulting Provider: Gerardo Barnes Consult Reason/Comments: polycythemia Do you want consulting provider notified?: Yes Primary care physician: Yadiel Moffett - Discharge Diagnosis(es) (1) Cecal volvulus Current Visit: Yes Status: Acute (2) Polycythemia vera Current Visit: Yes Status: Chronic Priority: Low (3) Aneurysm Current Visit: Yes Status: Acute (4) Pancreatitis Current Visit: Yes Status: Acute Hospital Course: The patient presented to the emergency department with abdominal pain. Workup was suggestive of a cecal volvulus but she also had evidence of pancreatitis. She was hydrated. Given pain control. Attempt was made at reducing the volvulus with a barium enema which was unsuccessful. Her labs had improved. She was therefore taken the OR where she undergoes a right hemicolectomy. She is able to be quickly reintroduced on a diet. Increased her activity. Pain was well controlled initially with [employer]. By 414 she was tolerating a diet, having minimal pain, stooling and felt to be stable for discharge Pertinent Studies: CT, barium enema, lab Procedures: Right hemicolectomy Patient Condition at Discharge: Good Plan - Discharge Summary New Discharge Prescriptions: HYDROcodone/APAP 5-325MG [Martha 5-325] 1 - 2 tab PO Q4H PRN #30 tab PRN Reason: Pain Discharge Medication List Allopurinol [Zyloprim] 100 mg PO DAILY 12/23/13 [History] Furosemide [Lasix] 40 mg PO BID 12/23/13 [History] Metoprolol Tartrate [Lopressor] 100 mg PO QID 12/23/13 [History] Cholecalciferol [Vitamin D3] 2,000 unit PO DAILY 03/24/14 [History] Hydroxyurea [Hydrea] 500 mg PO DIRECTED 06/02/16 [History] amLODIPine [Norvasc] 5 mg PO HS 06/02/16 [History] HYDROcodone/APAP 5-325MG [Martha 5-325] 1 - 2 tab PO Q4H PRN #30 tab 06/06/16 [Rx ] Follow up Appointment(s)/Referral(s): Gerardo Barnes MD [STAFF PHYSICIAN] - 06/20/16 10:45 am Yadiel Moffett DO [Primary Care Provider] - 1-2 days Verónica Galdamez DO [Emergency Provider] - 10 Days Activity/Diet/Wound Care/Special Instructions: May shower. No tub baths for 1 week. The dressing may be removed next Thursday or Thursday. Follow a bland diet. Avoid fresh fruits and vegetables for approximately 2 weeks. Expect more frequent, softer bowel movements for 1-2 weeks. No lifting greater than 10 pounds. No driving for 1 week. Call if questions or concerns.
== END 2016-06-06 15:00 | disposition home or self-care (01) | DRG 329 ==
LOC: EC 21:39 → 3SUR 06-02 03:06 → 5MS5E 06-04 18:32
PROVIDERS: ADMIT Surgery; ATTEND Surgery
PROC: 0DTF0ZZ Resection of Right Large Intestine, Open Approach (ICD-10-PCS; principal; 2016-06-02 11:25)
DX: K56.2 Volvulus (principal); K85.90 Acute pancreatitis without necrosis or infection, unspecified; D45 Polycythemia vera; I10 Essential (primary) hypertension; K21.9 Gastro-esophageal reflux disease without esophagitis; M10.9 Gout, unspecified; N28.9 Disorder of kidney and ureter, unspecified; Z79.899 Other long term (current) drug therapy; Z82.49 Family history of ischemic heart disease and other diseases of the circulatory system; Z90.81 Acquired absence of spleen
CPT/HCPCS: 36415; 74020; 74176; 74280; 80053; 81001; 82150; 83605; 83690; 85025; 85027; 85610; 85730; 86850; 86900; 86901; 87086; 88307; 96361; 96365; 96366; 96375; 99285

== ENCOUNTER 2016-06-12 12:19 | Inpatient (IN) | payer MEDICARE ==
[2016-06-12] MEDS ORDERED: PANTOPRAZOLE 40 MG/10 ML VIAL IVP STA (13:08)
[2016-06-12] MEDS ORDERED: SODIUM CHLORIDE 0.9% 1,000 ML IV STA ×3 (13:08→14:46)
[2016-06-12] MEDS ORDERED: ONDANSETRON 4 MG/2 ML VIAL IVP STA (13:08)
--- NOTE | 2016-06-12 13:28 | ED ---
General Adult HPI - General Chief complaint: Nausea/Vomiting/Diarrhea Stated complaint: Back Pain Time Seen by Provider: 06/12/16 12:37 Source: patient, RN notes reviewed, old records reviewed Mode of arrival: EMS - History of Present Illness Initial comments: This is a 66-year-old female to the ER for evaluation. This patient presents today for evaluation of abdominal pain nausea and decreased appetite. Patient had recent surgery first: CVA, is having bowel movement passing diarrhea. No fevers. Mainly complaining of nausea mild mild abdominal pain but nothing out of urinary. Patient was just discharged from hospital 2-3 days ago. No difficulty with urination although she states she has not urinated much, states she is dehydrated secondary to loss of appetite. Does not feel like she has the urge to urinate. No chest pain or shortness of breath - Related Data Home Medications Medication Instructions Recorded Confirmed Allopurinol [Zyloprim] 100 mg PO DAILY 12/23/13 06/12/16 Furosemide [Lasix] 40 mg PO BID@0800,1800 PRN 12/23/13 06/12/16 Metoprolol Tartrate [Lopressor] 100 mg PO QID 12/23/13 06/12/16 Cholecalciferol [Vitamin D3] 2,000 unit PO DAILY 03/24/14 06/12/16 Hydroxyurea [Hydrea] 500 mg PO DIRECTED 06/02/16 06/12/16 amLODIPine [Norvasc] 5 mg PO HS 06/02/16 06/12/16 Loperamide HCl [Imodium A-D] 2 - 4 mg PO DAILY PRN 06/12/16 06/12/16 Prochlorperazine Maleate 10 mg PO Q6HR PRN 06/12/16 06/12/16 Previous Rx's Medication Instructions Recorded HYDROcodone/APAP 5-325MG [Forest 1 - 2 tab PO Q4H PRN #30 tab 06/06/16 5-325] Allergies Allergy/AdvReac Type Severity Reaction Status Date / Time No Known Allergies Allergy Verified 06/12/16 14:29 Review of Systems ROS Statement: Those systems with pertinent positive or pertinent negative responses have been documented in the HPI. ROS Other: All systems not noted in ROS Statement are negative. 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" History of Any Multi-Drug Resistant Organisms: C-DIFF Date of last positivie culture/infection: 2011 Past Surgical History: Appendectomy, Hernia Repair, Hysterectomy Additional Past Surgical History / Comment(s): SPLENECTOMY, CYST REMOVED FROM BOWEL Past Anesthesia/Blood Transfusion Reactions: No Reported Reaction Additional Past Anesthesia/Blood Transfusion Reaction / Comment(s): no history of blood transfusion Past Psychological History: No Psychological Hx Reported Smoking Status: Never smoker Past Alcohol Use History: None Reported Past Drug Use History: None Reported - Past Family History Father Family Medical History: Myocardial Infarction ([place]) Additional Family Medical History / Comment(s): aneurysm Mother Family Medical History: Cancer, Congestive Heart Failure (CHF), Renal Disease Additional Family Medical History / Comment(s): kidney cancer General Exam General appearance: alert, in no apparent distress Head exam: Present: atraumatic, normocephalic, normal inspection Eye exam: Present: normal appearance, PERRL, EOMI. Absent: scleral icterus, conjunctival injection, periorbital swelling ENT exam: Present: normal exam, mucous membranes moist Neck exam: Present: normal inspection. Absent: tenderness, meningismus, lymphadenopathy Respiratory exam: Present: normal lung sounds bilaterally. Absent: respiratory distress, wheezes, rales, rhonchi, stridor Cardiovascular Exam: Present: regular rate, normal rhythm, normal heart sounds. Absent: systolic murmur, diastolic murmur, rubs, gallop, clicks GI/Abdominal exam: Present: soft, normal bowel sounds. Absent: distended, tenderness, guarding, rebound, rigid Extremities exam: Present: normal inspection, full ROM, normal capillary refill. Absent: tenderness, pedal edema, joint swelling, calf tenderness Back exam: Present: normal inspection Neurological exam: Present: alert, oriented X3, CN II-XII intact Psychiatric exam: Present: normal affect, normal mood Skin exam: Present: warm, dry, intact, normal color. Absent: rash Course Vital Signs 06/12/16 06/12/16 12:23 13:05 Temperature 97.0 F L Pulse Rate 74 72 Respiratory 18 18 Rate Blood Pressure 83/46 91/52 O2 Sat by Pulse 96 98 Oximetry - Reevaluation(s) Reevaluation #1: 06/12/16 14:49 Bladder scan shows minimal urine, 40 mL Reevaluation #2: 06/12/16 14:49 Patient's has no improvement in real in critical condition, no urinary output here in emergency room Medical Decision Making - Medical Decision Making 58 female year status post surgery for colon CA, patient coming in the ER, worsening renal failure, history of one kidney. Patient will be admitted for nephrology and and reevaluation by general surgery under her family doctor - Lab Data Result diagrams: 06/12/16 13:25 06/12/16 13:25 Lab Results 06/12/16 06/12/16 06/12/16 Range/Units 13:25 13:25 13:25 WBC 7.0 (3.8-10.6) k/uL RBC 3.85 (3.80-5.40) m/uL Hgb 13.9 (11.4-16.0) gm/dL Hct 47.2 H (34.0-46.0) % MCV 122.6 H (80.0-100.0) fL MCH 36.0 H (25.0-35.0) pg MCHC 29.4 L (31.0-37.0) g/dL RDW 23.3 H (11.5-15.5) % Plt Count 406 (150-450) k/uL Neutrophils % (Manual) 78.0 % Band Neutrophils % 1.5 % Lymphocytes % (Manual) 8.0 % Monocytes % (Manual) 12.5 % Neutrophils # (Manual) 5.6 (1.3-7.7) k/uL Lymphocytes # (Manual) 0.6 L (1.0-4.8) k/uL Monocytes # (Manual) 0.9 (0-1.0) k/uL Nucleated RBCs 14 H (0-0) /100 WBC Large Platelets Present Hypochromasia Marked Poikilocytosis Slight Anisocytosis Moderate Macrocytosis Marked Target Cells Present Crenated Cell Present Sodium 126 L (137-145) mmol/L Potassium 3.5 (3.5-5.1) mmol/L Chloride 96 L (98-107) mmol/L Carbon Dioxide 11 L (22-30) mmol/L Anion Gap 19 mmol/L BUN 90 H* (7-17) mg/dL Creatinine 5.48 H* (0.52-1.04) mg/dL Est GFR (MDRD) Af Amer 9 (>60 ml/min/1.73 sqM) Est GFR (MDRD) Non-Af 8 (>60 ml/min/1.73 sqM) Glucose 127 H (74-99) mg/dL Plasma Lactic Acid Hrai (0.7-2.0) mmol/L Calcium 8.3 L (8.4-10.2) mg/dL Total Bilirubin 1.7 H (0.2-1.3) mg/dL AST 12 L (14-36) U/L ALT 20 (9-52) U/L Alkaline Phosphatase 95 (38-126) U/L Total Creatine Kinase <20 L (30-135) U/L CK-MB (CK-2) 0.6 (0.0-2.4) ng/mL CK-MB (CK-2) Rel Index 0.0 Troponin I <0.012 (0.000-0.034) ng/mL Total Protein 7.1 (6.3-8.2) g/dL Albumin 3.6 (3.5-5.0) g/dL Amylase 70 (30-110) U/L Lipase 348 H (23-300) U/L 06/12/16 Range/Units 13:25 WBC (3.8-10.6) k/uL RBC (3.80-5.40) m/uL Hgb (11.4-16.0) gm/dL Hct (34.0-46.0) % MCV (80.0-100.0) fL MCH (25.0-35.0) pg MCHC (31.0-37.0) g/dL RDW (11.5-15.5) % Plt Count (150-450) k/uL Neutrophils % (Manual) % Band Neutrophils % % Lymphocytes % (Manual) % Monocytes % (Manual) % Neutrophils # (Manual) (1.3-7.7) k/uL Lymphocytes # (Manual) (1.0-4.8) k/uL Monocytes # (Manual) (0-1.0) k/uL Nucleated RBCs (0-0) /100 WBC Large Platelets Hypochromasia Poikilocytosis Anisocytosis Macrocytosis Target Cells Crenated Cell Sodium (137-145) mmol/L Potassium (3.5-5.1) mmol/L Chloride (98-107) mmol/L Carbon Dioxide (22-30) mmol/L Anion Gap mmol/L BUN (7-17) mg/dL Creatinine (0.52-1.04) mg/dL Est GFR (MDRD) Af Amer (>60 ml/min/1.73 sqM) Est GFR (MDRD) Non-Af (>60 ml/min/1.73 sqM) Glucose (74-99) mg/dL Plasma Lactic Acid Hari 0.9 (0.7-2.0) mmol/L Calcium (8.4-10.2) mg/dL Total Bilirubin (0.2-1.3) mg/dL AST (14-36) U/L ALT (9-52) U/L Alkaline Phosphatase (38-126) U/L Total Creatine Kinase (30-135) U/L CK-MB (CK-2) (0.0-2.4) ng/mL CK-MB (CK-2) Rel Index Troponin I (0.000-0.034) ng/mL Total Protein (6.3-8.2) g/dL Albumin (3.5-5.0) g/dL Amylase (30-110) U/L Lipase (23-300) U/L - Radiology Data Radiology results: report reviewed (Extra-abdominal surgical chest is negative, ultrasound bilateral kidney bladder is pending), image reviewed Disposition Clinical Impression: Dehydration, Acute renal failure, Pancreatitis, Single kidney, Nausea & vomiting Disposition: ADMITTED IP TO THIS [facility] Condition: Serious Referrals: Yadiel Moffett DO [Primary Care Provider] - 1-2 days
[2016-06-12 13:53] LABS: Anisocytosis Moderate; CH 37.1; CHCM 30.5; HCT 47.2 % (34.0-46.0); HDW 3.52; HGB 13.9 gm/dL (11.4-16.0); Hypochromasia Marked; Immature Gran Flag Marked; MCHC 29.4 g/dL (31.0-37.0); MCV 122.6 fL (80.0-100.0); Macrocytosis Marked; Mean Platelet Volume 10.6; Poikilocytosis Slight; RBC 3.85 m/uL (3.80-5.40); RDW 23.3 % (11.5-15.5); WBC (Perox) 8.46
[2016-06-12 13:56] LABS: Calcium 8.3 mg/dL (8.4-10.2); Potassium 3.5 mmol/L (3.5-5.1); Total Bilirubin 1.7 mg/dL (0.2-1.3); Total Protein 7.1 g/dL (6.3-8.2)
[2016-06-12 14:10] LABS: Creatine Kinase <20 U/L (30-135)
[2016-06-12 14:14] LABS: Add Differential Manual Differential
[2016-06-12 14:19] LABS: Band Neutrophils % 1.5 %; Nucleated Red Blood Cells 14 /100 WBC (0-0); Total Cells Counted 200
[2016-06-12 14:20] LABS: Large Platelets Present; Target Cells Present
[2016-06-12 14:21] LABS: Crenated RBC Present
[2016-06-12 14:23] LABS: Creatine Kinase MB 0.6 ng/mL (0.0-2.4); Troponin I <0.012 ng/mL (0.000-0.034)
--- NOTE | 2016-06-12 14:46 | XR ---
EXAMINATION TYPE: XR abdomen acute w cxr DATE OF EXAM: 06/12/2016 2:39 PM COMPARISON: NONE HISTORY: Pain nausea TECHNIQUE: Frontal chest upright and supine views of the abdomen. FINDINGS: Surgical clips are along the anterior abdomen. There are scattered air-fluid levels in the region of the transverse colon and splenic flexure. Some prominent small bowel loops may be within th e left midabdomen. Psoas margins are normal. Free air is not identified. Mass effect is noted. Organomegaly. IMPRESSION: 1. Postsurgical changes. Suspicious obstruction is not identified. Follow-up exams can be performed as clinically indicated
--- NOTE | 2016-06-12 15:48 | US ---
EXAMINATION TYPE: US kidneys/renal and bladder DATE OF EXAM: 06/12/2016 3:21 PM COMPARISON: Ultrasound 09/26/2013 CLINICAL HISTORY: Pain. Back pain, elevated BUN and creatinine EXAM MEASUREMENTS: Right Kidney: 10.4 x 6.1 x 5.4 cm Left Kidney: 8.7 x 4.6 x 4.5 cm Right Kidney: 2.1cm cystic area lateral mid pole, limited by rib shadowing Left Kidney: appears small in size when compared to right kidney (patient states left kidney does not function anymore), limited visualization due to rib shadowing and overlying bowel gas Bladder: limited visualization, not fully distended Bilateral Jets seen: no Stenosis was present on ultrasound of 10/06/2013 IMPRESSION: 1. Simple Right renal cyst.
[2016-06-12 17:27] VITALS: BMI 29.2
[2016-06-12] MEDS ORDERED: HYDROcodone/APAP 5-325MG 1 EACH TAB PO PRN (18:07)
[2016-06-12] MEDS: amLODIPine 5 MG TAB PO SCH (21:53)
[2016-06-12] MEDS: HYDROXYUREA 500 MG CAP PO SCH (21:54)
[2016-06-12] MEDS: METOPROLOL TARTRATE 50 MG TAB PO SCH (21:54)
[2016-06-12 22:06] LABS: Appearance,Urine Turbid (Clear); Bacteria,Urine Rare /hpf; Bilirubin,Urine 1+ (Negative); Glucose,Urine (UA) Negative (Negative); Ketones,Urine Negative (Negative); Leukocyte Esterase,Urine Small (Negative); Mucus,Urine Occasional /hpf; Nitrite,Urine Negative (Negative); Particle Count 20527; Protein,Urine 1+ (Negative); RBC,Urine 4 /hpf (0-5); Specific Gravity,Urine 1.015 (1.001-1.035); Squamous Epithelial Cell,Urine 57 /hpf (0-4); UA Billing (MACRO vs. MICRO) MICRO; Urobilinogen,Urine <2.0 mg/dL (<2.0); WBC,Urine 15 /hpf (0-5)
[2016-06-13] MEDS: LEVOFLOXACIN 250 MG TAB PO SCH ×2 (00:30→20:48)
[2016-06-13] MEDS: HYDROcodone/APAP 5-325MG 1 EACH TAB PO PRN ×2 (07:47→17:57)
[2016-06-13] MEDS: METOPROLOL TARTRATE 50 MG TAB PO SCH ×4 (08:21→23:24)
[2016-06-13] MEDS: ENOXAPARIN 30 MG/0.3 ML SYRINGE SQ SCH (08:22)
[2016-06-13] MEDS: ALLOPURINOL 100 MG TAB PO SCH (08:22)
[2016-06-13] MEDS: CHOLECALCIFEROL 1,000 UNIT TAB PO SCH (08:22)
[2016-06-13] MEDS: HYDROXYUREA 500 MG CAP PO SCH ×2 (08:23→20:48)
--- NOTE | 2016-06-13 08:40 | P.NPCON ---
History of Present Illness - Reason for Consult acute renal failure - History of Present Illness Reason for consultation: Acute kidney injury Patient is a 66-year-old female seen in renal consultation for acute kidney injury. Patient presented to the hospital with abdominal pain along with significant diarrhea going on for the last 3 days. Oral intake has been poor. In addition she was taking Lasix. 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 Patient also states her left kidney is nonfunctional and on ultrasound it is noted to be small in size compared to her right kidney. There is no history of diabetes. Her diarrhea is improved. She denies use of NSAIDs. She denies any vomiting. Denies chest pain or shortness of breath. Her blood pressures have been on the lower side in the systolic 90s and she did receive 2 L IV bolus of normal saline in the ER. She currently is on normal saline at 100 mL an hour. She states she hasn't been urinating much last couple of days either. She currently is a Aranda catheter in place and urine output is documented as 350 mL overnight. Vital signs are stable. General: The patient appeared well nourished and normally developed. HEENT: Head exam is unremarkable. Neck is without jugular venous distension. LUNGS: Lungs are clear to auscultation and percussion. Breath sounds decreased. HEART: Rate and Rhythm are regular. First and second heart sounds normal. No murmurs, rubs or gallops. ABDOMEN: Abdominal exam reveals normal bowel sounds. Non-tender and non- distended. No evidence of peritonitis. EXTREMITITES: No clubbing, cyanosis, or edema. Past Medical History Past Medical History: Blood Disorder, GERD/Reflux, Hypertension Additional Past Medical History / Comment(s): RENAL INSUFFINENCY, GOUT, polycythemia aaron 2-blood disorder that causes wbc to be high, aortic aneurysm, "left kidney does not work" History of Any Multi-Drug Resistant Organisms: C-DIFF Date of last positivie culture/infection: 2011 MDRO Source:: STOOL Past Surgical History: Appendectomy, Hernia Repair, Hysterectomy Additional Past Surgical History / Comment(s): SPLENECTOMY, MASS REMOVED FROM BOWEL Past Anesthesia/Blood Transfusion Reactions: No Reported Reaction Additional Past Anesthesia/Blood Transfusion Reaction / Comment(s): no history of blood transfusion Past Psychological History: Anxiety Smoking Status: Never smoker Past Alcohol Use History: None Reported Past Drug Use History: None Reported - Past Family History Father Family Medical History: Myocardial Infarction ([place]) Additional Family Medical History / Comment(s): aneurysm Mother Family Medical History: Cancer, Congestive Heart Failure (CHF), Renal Disease Additional Family Medical History / Comment(s): kidney cancer Medications and Allergies Home Medications Medication Instructions Recorded Confirmed Type Allopurinol [Zyloprim] 100 mg PO DAILY 12/23/13 06/12/16 History Furosemide [Lasix] 40 mg PO BID@0800,1800 PRN 12/23/13 06/12/16 History Metoprolol Tartrate [Lopressor] 100 mg PO QID 12/23/13 06/12/16 History Cholecalciferol [Vitamin D3] 2,000 unit PO DAILY 03/24/14 06/12/16 History Hydroxyurea [Hydrea] 500 mg PO DIRECTED 06/02/16 06/12/16 History amLODIPine [Norvasc] 5 mg PO HS 06/02/16 06/12/16 History Loperamide HCl [Imodium A-D] 2 - 4 mg PO DAILY PRN 06/12/16 06/12/16 History Prochlorperazine Maleate 10 mg PO Q6HR PRN 06/12/16 06/12/16 History Allergies Allergy/AdvReac Type Severity Reaction Status Date / Time No Known Allergies Allergy Verified 06/12/16 14:29 Physical Exam Vitals: Vital Signs Temp Pulse Pulse Resp BP BP Pulse Ox 06/13/16 07:00 97.7 F 86 16 93/56 94 L 06/13/16 00:00 73 16 06/12/16 18:02 97.7 F 73 16 95/55 95 06/12/16 17:34 18 06/12/16 17:00 96.8 F L 74 18 98/50 95 06/12/16 16:36 96.8 F L 74 18 98/50 95 06/12/16 15:03 97.1 F L 75 18 129/64 98 Intake and Output 06/12/16 06/13/16 06/13/16 22:59 06:59 14:59 Output Total 350 Balance -350 Output: Urine 350 Uretheral (Aranda) 350 Other: Voiding Method Toilet Indwelling Catheter Weight 72.575 kg Results - Lab Results Most recent lab results Calcium 8.3 mg/dL (8.4-10.2) L 06/12/16 13:25 06/12/16 13:25 06/12/16 13:25 Assessment and Plan Plan: Lou: #1. Nonoliguric acute kidney injury mostly prerenal in nature secondary to diarrhea and poor oral intake. Creatinine 5.48 on admission. No hydronephrosis noted on renal ultrasound. No significant proteinuria or hematuria present on urinalysis. #2. Anion gap metabolic acidosis secondary to acute kidney injury and diarrhea. #3. Hypovolemic hyponatremia. #4. Chronic kidney disease stage III with baseline creatinine in the range of 1.3-1.5 secondary to nephrosclerosis and atrophic left kidney. #5. Diarrhea. C. diff negative. Plan: Discontinue normal saline. Start isotonic sodium bicarbonate drip to be run at 125 mL an hour. Encourage oral intake as tolerated. Avoid nephrotoxic agents and hypotensive episodes. Diuretics held. Hold antihypertensives for systolic blood pressure less than 120. Follow-up morning labs. Repeat electrolytes in the morning. Thank you for the consultation. I will continue to follow the patient due to during her hospital stay.
[2016-06-13 08:50] LABS: Potassium 3.5 mmol/L (3.5-5.1)
[2016-06-13] MEDS ORDERED: ENOXAPARIN 40 MG/0.4 ML SYRINGE SQ SCH (09:00)
[2016-06-13] MEDS: SODIUM BICARB IV SCH ×2 (10:41→19:47)
[2016-06-13] MEDS: WATER IV SCH ×2 (10:41→19:47)
[2016-06-13] MEDS: DEXTROSE 5% IV SCH ×2 (10:41→19:47)
--- NOTE | 2016-06-13 14:04 | P.HPIM ---
History of Present Illness H&P Date: 06/13/16 Chief Complaint: Nausea,, loss of appetite, decreased urination Patient is a 66-year-old white female, patient of Dr. Yadiel Moffett in the outpatient setting. Medical history significant for GERD, hypertension, chronic end-stage renal failure, gout, C. diff, myelo proliferative disorder, polycythemia vera with a reactive leukocytosis and thrombocytosis status post splenectomy, aneurysm, pancreatitis, and recent right hemicolectomy for cecal volvulus on 06/02/2016. Patient presented to the emergency department with complaints of nausea, abdominal pain with diarrhea, decreased appetite, and decreased urination. No history of fevers, chills, vomiting, shortness of breath, chest pain, melena, or hematemesis. Patient reports she only has one functioning kidney with ultrasound of kidneys revealing small left kidney. Blood work in the emergency department with evidence of acute on chronic renal failure, dehydration, pancreatitis, and urinary tract infection. No history of dysuria, hematuria, or urgency. C. difficile negative. In the emergency department, patient was fluid resuscitated with 2 L of normal saline and transferred to the medical floor with consults to nephrology and Dr. Galdamez for history of recent surgery. Upon examination, patient states she is feeling much improved. Diarrhea has subsided. Patient reports intermittent nausea and no vomiting. Denies chills, shortness of breath, chest pain, abdominal pain, or leg swelling. Patient tolerated a regular breakfast and consumed approximately 75% of her meal. Aranda catheter has been inserted with 350 mL of urine over the last 24 hours. Patient has been evaluated by nephrology service and started on a bicarbonate drip. Surgical consult pending. Past Medical History Past Medical History: Blood Disorder, GERD/Reflux, Hypertension Additional Past Medical History / Comment(s): RENAL INSUFFINENCY, GOUT, polycythemia aaron 2-blood disorder that causes wbc to be high, aortic aneurysm, "left kidney does not work" History of Any Multi-Drug Resistant Organisms: C-DIFF Date of last positivie culture/infection: 2011 MDRO Source:: STOOL Past Surgical History: Appendectomy, Hernia Repair, Hysterectomy Additional Past Surgical History / Comment(s): SPLENECTOMY, MASS REMOVED FROM BOWEL Past Anesthesia/Blood Transfusion Reactions: No Reported Reaction Additional Past Anesthesia/Blood Transfusion Reaction / Comment(s): no history of blood transfusion Past Psychological History: Anxiety Smoking Status: Never smoker Past Alcohol Use History: None Reported Past Drug Use History: None Reported - Past Family History Father Family Medical History: Myocardial Infarction ([place]) Additional Family Medical History / Comment(s): aneurysm Mother Family Medical History: Cancer, Congestive Heart Failure (CHF), Renal Disease Additional Family Medical History / Comment(s): kidney cancer Medications and Allergies Home Medications Medication Instructions Recorded Confirmed Type Allopurinol [Zyloprim] 100 mg PO DAILY 12/23/13 06/12/16 History Furosemide [Lasix] 40 mg PO BID@0800,1800 PRN 12/23/13 06/12/16 History Metoprolol Tartrate [Lopressor] 100 mg PO QID 12/23/13 06/12/16 History Cholecalciferol [Vitamin D3] 2,000 unit PO DAILY 03/24/14 06/12/16 History Hydroxyurea [Hydrea] 500 mg PO DIRECTED 06/02/16 06/12/16 History amLODIPine [Norvasc] 5 mg PO HS 06/02/16 06/12/16 History Loperamide HCl [Imodium A-D] 2 - 4 mg PO DAILY PRN 06/12/16 06/12/16 History Prochlorperazine Maleate 10 mg PO Q6HR PRN 06/12/16 06/12/16 History Allergies Allergy/AdvReac Type Severity Reaction Status Date / Time No Known Allergies Allergy Verified 06/12/16 14:29 Physical Exam Vitals: Vital Signs Temp Pulse Pulse Resp BP BP Pulse Ox 06/13/16 12:49 80 107/58 06/13/16 08:00 86 16 06/13/16 07:00 97.7 F 86 16 93/56 94 L 06/13/16 00:00 73 16 06/12/16 18:02 97.7 F 73 16 95/55 95 06/12/16 17:34 18 06/12/16 17:00 96.8 F L 74 18 98/50 95 06/12/16 16:36 96.8 F L 74 18 98/50 95 06/12/16 15:03 97.1 F L 75 18 129/64 98 Intake and Output 06/12/16 06/13/16 06/13/16 22:59 06:59 14:59 Intake Total 360 Output Total 350 Balance -350 360 Intake: Oral 360 Output: Urine 350 Uretheral (Aranda) 350 Other: Voiding Method Toilet Indwelling Catheter Indwelling Catheter Weight 72.575 kg GENERAL: Pt awake and alert, well-appearing, well-nourished, and in no acute distress. HEAD: Atraumatic, normocephalic. EYES: Pupils equal, round, and reactive to light, extraocular movements intact, sclera anicteric, conjunctiva are normal. ENT: Oropharynx clear without exudates. Moist mucous membranes. NECK:Supple without lymphadenopathy or JVD. LUNGS: Breath sounds clear to auscultation bilaterally. No wheezes, rales, or rhonchi. HEART: Heart S1, S2, no S3 or S4. Regular rate and rhythm. No murmurs, rubs or gallops. ABDOMEN: Soft, nontender, nondistended, normoactive bowel sounds. No guarding, no rebound. No masses or organomegaly appreciated. Abdominal incision clean, dry, chantell intact, no erythema or drainage. EXTREMITIES: 2+ peripheral pulses. No edema. No calf tenderness. NEUROLOGICAL: Pt oriented x 3. No focal deficits. Strength and sensation grossly intact. PSYCH: Normal mood, normal affect. SKIN: Warm, dry, intact. Normal turgor. No rashes or lesions. Results CBC & Chem 7: 06/12/16 13:25 06/13/16 08:25 Labs: Abnormal Lab Results - Last 24 Hours (Table) 06/12/16 06/13/16 Range/Units 18:50 08:25 Sodium 130 L (137-145) mmol/L Carbon Dioxide 11 L (22-30) mmol/L BUN 82 H* (7-17) mg/dL Creatinine 4.06 H (0.52-1.04) mg/dL Calcium 8.0 L (8.4-10.2) mg/dL Urine Appearance Turbid H (Clear) Urine Protein 1+ H (Negative) Urine Blood Trace H (Negative) Urine Bilirubin 1+ H (Negative) Ur Leukocyte Esterase Small H (Negative) Urine WBC 15 H (0-5) /hpf Ur Squamous Epith Cells 57 H (0-4) /hpf Urine Bacteria Rare H (None) /hpf Hyaline Casts 57 H (0-2) /lpf Urine Mucus Occasional H (None) /hpf Urine Yeast (Budding) Many H (None) /hpf Microbiology - Last 24 Hours (Table) 06/12/16 18:50 Urine Culture - Preliminary Urine,Clean Catch US - abdomen: report reviewed (Simple right renal cyst. Left kidney appears small in size when compared to right kidney.) Thrombosis Risk Factor Assmnt - DVT/VTE Prophylaxis DVT/VTE Prophylaxis: Pharmacologic Prophylaxis ordered - Choose All That Apply Each Factor Represents 1 point: Medical pt on bed rest Other Risk Factors: Yes Each Risk Factor Represents 2 Points: Age 61-74 years Thrombosis Risk Factor Assessment Total Risk Factor Score: 3 Thrombosis Risk Factor Assessment Level: Moderate Risk Assessment and Plan Plan: Impression: 1. Acute renal failure suspect secondary to decreased intravascular volume secondary to dehydration secondary to diarrhea and decreased oral intake. 2. Possible urinary tract infection. Urine cultures pending. 3. Abdominal pain, present on admission, suspect secondary to mild pancreatitis. Lipase 348 on admission. 4. Chronic kidney disease stage III with baseline creatinine in the range of 1.3-1.5 secondary to nephrosclerosis atrophic left kidney. 5. Hyponatremia suspect secondary to hypovolemia. 6. Diarrhea. C. difficile negative. 7. Polycythemia vera. 8. Gastroesophageal reflux disease. 9. History of gout. 10. Aortic aneurysm. 11. 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 12. History of splenectomy. 13. History of anxiety, stable. Plan: 1. Consult nephrology for acute renal failure, orders and recommendations noted. Consult Dr. Galdamez for postop surgical evaluation, recommendations pending. Home medications of been reviewed and resumed. At this time Lasix is on hold. Continue GI and DVT prophylaxis. Continue Levaquin and await urine culture result. Continue supportive treatment and pain management. Monitor intake and output. Monitor urine output. Repeat CBC, BMP, amylase and lipase in a.m. The above impression and plan have been discussed and directed by Dr. Moffett. Gre VALDEZ acting as scribe for Dr. Moffett.
[2016-06-13] MEDS: PROCHLORPERAZINE 10 MG TAB PO PRN (15:30)
[2016-06-13] MEDS: amLODIPine 5 MG TAB PO SCH (21:40)
[2016-06-14] MEDS: SODIUM BICARBONATE TAB 650 MG TAB PO SCH ×3 (01:23→21:11)
[2016-06-14] MEDS: PROCHLORPERAZINE 10 MG TAB PO PRN (03:32)
[2016-06-14] MEDS: SODIUM BICARB IV SCH ×2 (03:39→12:08)
[2016-06-14] MEDS: WATER IV SCH ×2 (03:39→12:08)
[2016-06-14] MEDS: DEXTROSE 5% IV SCH ×2 (03:39→12:08)
[2016-06-14] MEDS: ALLOPURINOL 100 MG TAB PO SCH (07:54)
[2016-06-14] MEDS: ENOXAPARIN 30 MG/0.3 ML SYRINGE SQ SCH (07:54)
[2016-06-14] MEDS: CHOLECALCIFEROL 1,000 UNIT TAB PO SCH (07:55)
[2016-06-14] MEDS: HYDROXYUREA 500 MG CAP PO SCH ×2 (07:56→21:12)
[2016-06-14] MEDS: METOPROLOL TARTRATE 50 MG TAB PO SCH ×4 (08:02→21:11)
[2016-06-14 08:16] LABS: Calcium 8.1 mg/dL (8.4-10.2)
[2016-06-14 08:23] LABS: Potassium 2.8 mmol/L (3.5-5.1)
[2016-06-14 08:26] LABS: Anisocytosis Moderate; CH 37.5; CHCM 32.5; HCT 37.4 % (34.0-46.0); HDW 3.74; HGB 12.1 gm/dL (11.4-16.0); Hypochromasia Slight; Immature Gran Flag Marked; MCH 37.4 pg (25.0-35.0); MCHC 32.3 g/dL (31.0-37.0); Macrocytosis Marked; Mean Platelet Volume 10.8; Poikilocytosis Slight; RBC 3.22 m/uL (3.80-5.40); RDW 22.5 % (11.5-15.5); WBC (Perox) 7.51
[2016-06-14 08:28] LABS: MCV 115.9 fL (80.0-100.0)
--- NOTE | 2016-06-14 10:39 | P.PN ---
Subjective Patient is seen in follow-up for acute kidney injury on chronic kidney disease. Patient has chronic kidney disease stage III with baseline creatinine in the range of 1.3-1.5. Her creatinine was elevated at 5.48 on admission and is improved to 2.37 today. Her potassium level is down to 2.8 today. She continues to have quite a bit of diarrhea. Her urine culture is positive for gram-negative bacilli as well as yeast. She is nonoliguric. Her bicarb level is improved to 22. Vital signs are stable. General: The patient appeared well nourished and normally developed. HEENT: Head exam is unremarkable. Neck is without jugular venous distension. LUNGS: Lungs are clear to auscultation and percussion. Breath sounds decreased. HEART: Rate and Rhythm are regular. First and second heart sounds normal. No murmurs, rubs or gallops. ABDOMEN: Abdominal exam reveals normal bowel sounds. Non-tender and non- distended. No evidence of peritonitis. EXTREMITITES: No clubbing, cyanosis, or edema. Objective - Vital Signs Vital signs: Vital Signs Temp 97.8 F 06/14/16 07:00 Pulse 85 06/14/16 08:00 Resp 16 06/14/16 08:00 BP 130/63 06/14/16 07:00 Pulse Ox 96 06/14/16 07:00 Intake & Output 06/13/16 06/14/16 06/14/16 18:59 06:59 18:59 Intake Total 360 360 Output Total 1050 Balance 360 -690 Intake: Oral 360 360 Output: Urine 1050 Uretheral (Aranda) 1050 Other: Voiding Method Indwelling Catheter Indwelling Catheter Indwelling Catheter - Labs CBC & Chem 7: 06/14/16 07:00 06/14/16 07:00 Labs: Abnormal Lab Results - Last 24 Hours (Table) 06/14/16 06/14/16 06/14/16 Range/Units 07:00 07:00 07:00 RBC 3.22 L (3.80-5.40) m/uL MCV 115.9 H D (80.0-100.0) fL MCH 37.4 H (25.0-35.0) pg RDW 22.5 H (11.5-15.5) % Sodium 136 L (137-145) mmol/L Potassium 2.8 L* (3.5-5.1) mmol/L BUN 70 H (7-17) mg/dL Creatinine 2.37 H (0.52-1.04) mg/dL Glucose 111 H (74-99) mg/dL Calcium 8.1 L (8.4-10.2) mg/dL Magnesium 1.5 L (1.6-2.3) mg/dL Lipase 380 H (23-300) U/L Microbiology - Last 24 Hours (Table) 06/12/16 18:50 Urine Culture - Preliminary Urine,Clean Catch Gram Neg Bacilli Yeast species Assessment and Plan Plan: Lou: #1. Nonoliguric acute kidney injury mostly prerenal in nature secondary to diarrhea and poor oral intake. Creatinine 5.48 on admission. No hydronephrosis noted on renal ultrasound. No significant proteinuria or hematuria present on urinalysis. #2. Anion gap metabolic acidosis secondary to acute kidney injury and diarrhea. Improved. #3. Hypovolemic hyponatremia. Improved. #4. Chronic kidney disease stage III with baseline creatinine in the range of 1.3-1.5 secondary to nephrosclerosis and atrophic left kidney. #5. Diarrhea. C. diff negative. #6. Hypokalemia related to GI losses as well as sodium bicarbonate infusion. Magnesium level also low. #7. Hypomagnesemia secondary to GI losses. Plan: Discontinue sodium bicarbonate drip. Start normal saline to be run at 75 mL an hour. Maintain oral sodium bicarbonate 1300 mg twice daily. Encourage oral intake as tolerated. Avoid nephrotoxic agents and hypotensive episodes. Diuretics held. Hold antihypertensives for systolic blood pressure less than 120. Replace magnesium. 2 g IV today. Replace potassium. 80 mEq today. Repeat electrolytes in the morning.
[2016-06-14] MEDS: POTASSIUM CHLORIDE ER 20 MEQ TAB.ER PO SCH ×2 (11:51→13:33)
[2016-06-14] MEDS: MAGNESIUM SULFATE-D5W PMX 1 GM in DEXTROSE/WATER 1 100ML.BAG IVPB SCH ×2 (12:09→13:33)
[2016-06-14] MEDS: SODIUM CHLORIDE 0.9% 1,000 ML IV SCH (12:15)
[2016-06-14 13:00] LABS: Add Differential Manual Differential
[2016-06-14 13:06] LABS: Nucleated Red Blood Cells 8 /100 WBC (0-0); Total Cells Counted 200
[2016-06-14 13:07] LABS: Hypersegmented Neutrophils Present; Target Cells Present
[2016-06-14 13:08] LABS: Howell-Jolly Bodies Present
[2016-06-14 13:11] LABS: Spherocytes Present
--- NOTE | 2016-06-14 14:04 | P.CON ---
Consult Note - . Consult date: 06/14/16 Assessment/Plan:: Thank you very much for asking us to see this patient. She is a 66-year-old white female who underwent a right colectomy for cecal volvulus last week by Dr. Galdamez. Developed some diarrhea over the last few days. Does have a history of C. diff colitis but the stool cultures were negative. Came in with dehydration nausea weakness and some generalized abdominal discomfort. Since admission yesterday she is feeling a lot better. Tolerating a diet. Diarrhea has improved. Had only had 2 loose bowel movements today. Denies abdominal pain or nausea. Appetite is back to normal. Past history social history family history well-documented on recent H&P. This is all reviewed. Examination: The patient is well-built well-nourished. BMI of 29.3. In no acute distress. Hydration is better. She is cheerful and ambulatory. Head and neck otherwise normal. Heart regular rhythm lungs are clear. Abdomen shows a well-healed scar. No mass or organomegaly. No significant tenderness except around the incisional area. No pus or evidence of any wound infection. No mass or organomegaly. Impression improving diarrhea probably nonspecific. No evidence of C. diff colitis. Dehydration resulting In renal failure. Recent right colectomy for volvulus. Recommendation: Continued medical management with rehydration. Low-residue diet if diarrhea. We will follow with you.
--- NOTE | 2016-06-14 19:01 | PN ---
DATE OF SERVICE: 06/14/2016 I am covering for Dr. Moffett. This 66-year-old woman who was admitted to acute renal failure, possibly secondary to decreased intravascular volume secondary to dehydration secondary to diarrhea and diminished oral intake, creatinine was more than 1.5 on admission. The patient was seen by multiple consultants including Surgery as well as Nephrology. The patient did have recent surgery, hemicolectomy due to cecal volvulus on June 02. The most recent values indicate creatinine 2.6, patient is severely hypokalemic at 2.8. PAST MEDICAL HISTORY: Reviewed. REVIEW OF SYSTEMS: CARDIOVASCULAR: As mentioned earlier. RESPIRATORY: As mentioned earlier. GI: As mentioned earlier. : No dysuria. Nervous system: No numbness or weakness. Current medications are reviewed and include: 1. [place] 5 mg every 4 p.r.n. 2. Zyloprim 100 mg daily. 3. Norvasc 5 mg at bedtime. 4. Vitamin D 2000 mg daily. 5. Lovenox 30 mg subcutaneous daily. 7. Hydrea 500 mg Thursday and . 8. Levaquin 250 mg at bedtime. 9. Lopressor 100 mg daily. 10. Compazine 100 mg every 6 p.r.n. 11. Sodium bicarb 1300 mg p.o. b.i.d. PHYSICAL EXAM: The patient is alert, oriented x3. Pulse 85, blood pressure 136/60, respirations 16, temperature 97.8, pulse ox 96% on room air. HEENT: Oral mucosa moist. NECK: No JVD. CARDIOVASCULAR: S1 and S2 muffled. LUNGS: Breath sounds diminished at the bases. Few scattered rhonchi. No crackles. ABDOMEN: Soft, nontender. No masses palpable. EXTREMITIES: Legs minimal edema, no swelling. NERVOUS SYSTEM: Higher functions intact. Moves all limbs equally. No focal deficits. SKIN: No ulcers, no rashes. Shiny skin of the legs. LABS: WBC 6, hemoglobin 10.1, MCV 115, sodium 136, potassium 3.8, creatinine 2.37. UA noted. ASSESSMENT: 1. Acute renal failure, present on admission, secondary to decreased intravascular volume, secondary to dehydration, diarrhea and diminished oral intake with acute tubular necrosis possibly. 2. Urinary tract infection possibly. 3. Abdominal pain secondary to mild pancreatitis. 4. Chronic kidney disease stage III with acute on chronic renal failure with prerenal factors, improving. 5. Hyponatremia secondary to hypovolemia. 6. Diarrhea with clostridium difficile negative. 7. Polycythemia vera. 8. Gastroesophageal reflux disease. 9. History of gout. 10. History of aortic aneurysm. 11. History of cecal volvulus with right hemicolectomy 06/02/2016. 12. History of splenectomy. 13. History of anxiety, stable. 14. FULL CODE. RECOMMENDATIONS/DISCUSSION: This 66-year-old woman presented with multiple complex medical issues. We will monitor the patient closely. Continue the current medications and symptomatic treatment. Continue with antibiotics. Continue to monitor fluids and electrolytes closely. Repeat labs in the morning. Closely follow with . Guarded prognosis. Further recommendations to follow. See orders for details. Discussed with multiple members of the family including family from [place] at the bedside. SLAVA
[2016-06-14] MEDS: amLODIPine 5 MG TAB PO SCH (21:11)
[2016-06-14] MEDS: LEVOFLOXACIN 250 MG TAB PO SCH (21:11)
[2016-06-15] MEDS: SODIUM CHLORIDE 0.9% 1,000 ML IV SCH ×2 (06:15→15:52)
[2016-06-15] MEDS: HYDROXYUREA 500 MG CAP PO SCH (07:32)
[2016-06-15] MEDS: ENOXAPARIN 30 MG/0.3 ML SYRINGE SQ SCH (07:32)
[2016-06-15] MEDS: ALLOPURINOL 100 MG TAB PO SCH (07:33)
[2016-06-15] MEDS: CHOLECALCIFEROL 1,000 UNIT TAB PO SCH (07:33)
[2016-06-15] MEDS: SODIUM BICARBONATE TAB 650 MG TAB PO SCH (07:33)
[2016-06-15] MEDS: METOPROLOL TARTRATE 50 MG TAB PO SCH ×3 (07:38→17:52)
[2016-06-15 07:48] VITALS: RESP 16; TEMP 97.7
[2016-06-15 08:06] LABS: Calcium 8.6 mg/dL (8.4-10.2); Magnesium 1.7 mg/dL (1.6-2.3); Potassium 3.6 mmol/L (3.5-5.1)
--- NOTE | 2016-06-15 09:21 | P.PN ---
Progress Note - Text The patient is doing much better. The last bowel movement was quite firm dinner. Less diarrhea. No nausea or vomiting. Tolerating her low-residue diet. Passing more urine. On examination she is awake alert ambulatory cheerful. Vitals are stable. Temperature is normal. Abdomen is quite soft nontender and the incision looks good chantell are intact. She is scheduled to have them removed in the to [address] Galdamez Renal function tests are back to almost normal. Impression resolved nonspecific diarrhea status post right colectomy. Resolving the renal failure. Recommendation continue low residue diet. Patient can be discharged from a surgical standpoint. Has an appointment with Dr. Galdamez in 3 days.
[2016-06-15 09:33] VITALS: PULSE 85
--- NOTE | 2016-06-15 09:43 | P.PN ---
Subjective Patient is seen in follow-up for acute kidney injury on chronic kidney disease. Patient has chronic kidney disease stage III with baseline creatinine in the range of 1.3-1.5. Her creatinine was elevated at 5.48 on admission and is improved to 1.1 today. Her potassium level is also improved to 3.6. Diarrhea is improved. Her urine culture is positive for Citrobacter and Caitlyn species. She is nonoliguric. Her bicarb level is improved to 23. Vital signs are stable. General: The patient appeared well nourished and normally developed. HEENT: Head exam is unremarkable. Neck is without jugular venous distension. LUNGS: Lungs are clear to auscultation and percussion. Breath sounds decreased. HEART: Rate and Rhythm are regular. First and second heart sounds normal. No murmurs, rubs or gallops. ABDOMEN: Abdominal exam reveals normal bowel sounds. Non-tender and non- distended. No evidence of peritonitis. EXTREMITITES: No clubbing, cyanosis, or edema. Objective - Vital Signs Vital signs: Vital Signs Temp 97.7 F 06/15/16 07:00 Pulse 85 06/15/16 08:00 Resp 16 06/15/16 08:00 BP 128/60 06/15/16 07:00 Pulse Ox 97 06/15/16 07:00 Intake & Output 06/14/16 06/15/16 06/15/16 18:59 06:59 18:59 Intake Total 540 Output Total 1300 1000 300 Balance -1300 -460 -300 Intake: Oral 540 Output: Urine 1300 1000 300 Other: Voiding Method Indwelling Catheter Toilet Toilet - Labs CBC & Chem 7: 06/14/16 07:00 06/15/16 07:17 Labs: Abnormal Lab Results - Last 24 Hours (Table) 06/14/16 06/14/16 06/15/16 Range/Units 07:00 07:00 07:17 RBC 3.22 L (3.80-5.40) m/uL MCV 115.9 H D (80.0-100.0) fL MCH 37.4 H (25.0-35.0) pg RDW 22.5 H (11.5-15.5) % Nucleated RBCs 8 H (0-0) /100 WBC Chloride 108 H (98-107) mmol/L BUN 36 H (7-17) mg/dL Creatinine 1.10 H (0.52-1.04) mg/dL Glucose 101 H (74-99) mg/dL Magnesium 1.5 L (1.6-2.3) mg/dL Microbiology - Last 24 Hours (Table) 06/12/16 18:50 Urine Culture - Final Urine,Clean Catch Citrobacter freundii Caitlyn sp,not albicans/galbr Assessment and Plan Plan: Lou: #1. Nonoliguric acute kidney injury mostly prerenal in nature secondary to diarrhea and poor oral intake. Creatinine 5.48 on admission and improved to 1.1 today. No hydronephrosis noted on renal ultrasound. No significant proteinuria or hematuria present on urinalysis. #2. Anion gap metabolic acidosis secondary to acute kidney injury and diarrhea. Improved. #3. Hypovolemic hyponatremia. Improved. #4. Chronic kidney disease stage III with baseline creatinine in the range of 1.3-1.5 secondary to nephrosclerosis and atrophic left kidney. #5. Diarrhea. C. diff negative. #6. Hypokalemia related to GI losses as well as sodium bicarbonate infusion. Magnesium level also low. Improved. #7. Hypomagnesemia secondary to GI losses. Improved. Plan: Discontinued sodium bicarbonate drip. Maintain normal saline to be run at 75 mL an hour. Maintain oral sodium bicarbonate 1300 mg twice daily. Encourage oral intake as tolerated. Avoid nephrotoxic agents and hypotensive episodes. Diuretics held. Hold antihypertensives for systolic blood pressure less than 120. Replace magnesium. 2 g IV today. Replace potassium. 40 mEq today. Repeat electrolytes in the morning. Stable to be discharged home from nephrology standpoint and to follow-up as an outpatient in the next 1-2 weeks.
[2016-06-15] MEDS: MAGNESIUM SULFATE-D5W PMX 1 GM in DEXTROSE/WATER 1 100ML.BAG IVPB SCH ×2 (11:10→19:19)
[2016-06-15] MEDS: POTASSIUM CHLORIDE 10 MEQ, LIDOCAINE 2% INJ 10 MG in SODIUM CHLORIDE 0.9% 100 ML IVPB SCH ×4 (14:44→18:14)
[2016-06-15 17:38] VITALS: BP 173/82
--- NOTE | 2016-06-16 12:21 | DS ---
DATE OF ADMISSION: 06/12/2016 DATE OF DISCHARGE: 06/15/2016 I am covering for Dr. Moffett. FINAL DIAGNOSES: 1. Acute renal failure, present on admission, secondary to decreased intravascular volume secondary to dehydration, diarrhea, and diminished p.o. intake and with acute tubular necrosis possibly. 2. Urinary tract infection possible, present on admission. 3. Abdominal pain secondary to mild pancreatitis. 4. Chronic kidney disease stage III with acute on chronic renal failure with prerenal factors improving. 5. Hyponatremia secondary to hypovolemia. 6. Diarrhea with Clostridium difficile negative. 7. Polycythemia history. 8. History of gastroesophageal reflux disease. 9. History of gout. 10. History of aortic aneurysm. 11. 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 12. History of splenectomy. 13. History of anxiety, stable. 14. FULL CODE. DISCHARGE DISPOSITION: The patient will be discharged in stable condition with guarded prognosis. HISTORY OF PRESENT ILLNESS: This 66-year-old woman with a past medical history of multiple medical problems was admitted with acute renal failure, the patient had multiple complex medical issues. Otherwise, treated symptomatically. IV fluids and antibiotics were given. Care was coordinated with Dr. Canales. Dr. Kirby saw the patient. On exam vital signs stable. Cardiovascular: S1, S2 muffled. RESPIRATORY: Breath sounds diminished at the bases. Scattered rhonchi. ABDOMEN: Soft, nontender. Central nervous system: Diffusely weak. Total time taken 35 minutes. Labs are noted. Creatinine improved to 1.10. Potassium 3.6, mag 1.7. The patient will be discharged in stable condition with guarded prognosis with the following advice and medications: 1. Diet is cardiac. 2. Activity limited until follow-up. 3. Follow up with Dr. Yadiel Moffett in one to two days. 4. Follow-up with Dr. Canales in one week. 5. The medications are: Zyloprim 100 mg p.o. daily. 6. Vitamin D3 2000 daily. 7. [place] 5 mg 1 to 2 tabs q.4 p.r.n. 8. Hydrea 500 mg p.o. daily as before. 9. Levaquin 250 mg q.h.s. for 4 days. 10. Loperamide 2 to 4 mg daily p.r.n. 11. Lopressor 100 mg p.o. q.i.d. 12. Prochlorperazine maleate 10 mg q.4- 6 p.r.n. 13. Sodium bicarb 1300 mg p.o. b.i.d. 14. Norvasc 5 mg q.h.s. Once again, the patient will be discharged in stable condition with guarded prognosis.
[2016-06-16] MEDS ORDERED: HYDROXYUREA 500 MG CAP PO SCH (15:00)
== END 2016-06-15 20:34 | disposition home or self-care (01) | DRG 682 ==
LOC: EC 12:19 → 5MS5E 14:50
PROVIDERS: ADMIT Family Medicine; ATTEND Family Medicine
PROC: 0T9B70Z Drainage of Bladder with Drainage Device, Via Natural or Artificial Opening (ICD-10-PCS; principal; 2016-06-12)
DX: N17.0 Acute kidney failure with tubular necrosis (principal); K85.90 Acute pancreatitis without necrosis or infection, unspecified; E87.2 Acidosis; E87.1 Hypo-osmolality and hyponatremia; N39.0 Urinary tract infection, site not specified; E83.42 Hypomagnesemia; D45 Polycythemia vera; I12.9 Hypertensive chronic kidney disease with stage 1 through stage 4 chronic kidney disease, or unspecified chronic kidney disease; E86.0 Dehydration; N18.3 Chronic kidney disease, stage 3 (moderate); E86.1 Hypovolemia; K21.9 Gastro-esophageal reflux disease without esophagitis; R19.7 Diarrhea, unspecified; E87.6 Hypokalemia; F41.9 Anxiety disorder, unspecified; M10.9 Gout, unspecified; N28.1 Cyst of kidney, acquired; R11.0 Nausea; N27.0 Small kidney, unilateral; R53.1 Weakness; R10.9 Unspecified abdominal pain; I71.9 Aortic aneurysm of unspecified site, without rupture; Z79.899 Other long term (current) drug therapy; Z82.49 Family history of ischemic heart disease and other diseases of the circulatory system; Z80.51 Family history of malignant neoplasm of kidney; Z90.81 Acquired absence of spleen; Z90.49 Acquired absence of other specified parts of digestive tract; Z98.890 Other specified postprocedural states; Z87.19 Personal history of other diseases of the digestive system; Z86.19 Personal history of other infectious and parasitic diseases; Z90.710 Acquired absence of both cervix and uterus; Z84.1 Family history of disorders of kidney and ureter
CPT/HCPCS: 36415; 74022; 76770; 80048; 80053; 81001; 82150; 82550; 82553; 83605; 83690; 83735; 84484; 85025; 87077; 87086; 87186; 87324; 96361; 96374; 96375; 99285

== ENCOUNTER → 2019-05-03 | Outpatient (CLI) | payer MEDICARE ==
--- NOTE | 2019-05-03 09:06 | US ---
EXAMINATION TYPE: US duplex aorta DATE OF EXAM: 05/03/2019 COMPARISON: CT 2017. CLINICAL HISTORY: I71 Aortic Aneurysm. HTN EXAM MEASUREMENTS: Abdominal Aorta: Proximal: 3.2cm A/P by 3.1 cm transversely Mid: 2.4 by 3.1cm Transverse Distal: 3.0 by 3.4cm Transverse Bifurcation: Right KRISTIAN = 2.1cm Transverse; Left KRISTIAN = 1.5 by 2.0cm Transverse Distal aorta and Right KRISTIAN wall dissection is noted with yin lares color flow sign in distal aorta and in Right KRISTIAN. PW Doppler flow is assessed in distal aorta and into Bilateral Common Iliac Artery. AAA is also documented. IMPRESSION: There is diffuse AAA up to 3.4 cm in diameter distally. Visualization of the 2 lumens in the distal right abdominal aorta with extension into the right common iliac artery. 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 The inferior length or extension of dissection is not documented. Correlate clinically with evaluating pulses of the right lower extre mity and comparing with left lower extremity. Consider further investigation with CTA abdomen and pel vis with lower extremity runoff to better evaluate and characterize. A [place] level critical message alert has been initiated for Yadiel Moffett DO via the [facility] Critical Results System on 05/03/2019 9:03 AM. This message alert has been sent to Yadiel Moffett DO via the preferences provided by the clinician for the receipt of Radiology Critical Findings. Message ID [id number].
== END | disposition home or self-care (01) ==
LOC: RADUSWWP 06:55
PROVIDERS: ATTEND Family Medicine
DX: I71.4 Abdominal aortic aneurysm, without rupture (principal)
CPT/HCPCS: 93979

== ENCOUNTER → 2019-05-12 | Outpatient (CLI) | payer MEDICARE | END | disposition home or self-care (01) | LOC: RADCTMAIN 15:57 | PROVIDERS: ATTEND Family Medicine | DX: I71.9 Aortic aneurysm of unspecified site, without rupture (principal) | CPT/HCPCS: 82565; 84520 ==